=== PATIENT | female | born 1940 | race Caucasian/White ===

== ENCOUNTER 2017-08-21 13:00 | Inpatient (IN) ==
[2017-08-21 14:36] LABS: Basophils # 0.1 K/mcL (0.0-0.2); Basophils % 0.8 %; Eosinophils # 0.2 K/mcL (0.0-0.6); Eosinophils % 2.5 %; Hematocrit 36.6 % (35.3-44.9); Hemoglobin 11.5 g/dL (11.5-15.4); Immature Granulocytes % 0.7 % (0-4); Lymphocytes # 2.5 K/mcL (0.6-4.6); Lymphocytes % 34.2 %; Mean Corpuscular HGB Conc 31.4 g/dL (31.6-35.5); Mean Corpuscular Hemoglobin 27.8 pg (28.0-33.3); Mean Corpuscular Volume 88.6 fL (83.0-100.0); Mean Platelet Volume 12.1 fL (9.4-12.4); Monocytes # 0.7 K/mcL (0.0-1.3); Neutrophils # 3.8 K/mcL (1.6-8.9); Platelet Count 236 K/mcL (140-400); Red Blood Count 4.13 M/mcL (3.82-4.97); Red Cell Distribution Width 13.2 % (11.5-14.5); Segmented Neutrophils % 52.8 %
[2017-08-21 14:42] LABS: Calcium 8.9 mg/dL (8.6-10.8); Potassium 3.9 mEq/L (3.5-4.5)
[2017-08-21] MEDS ORDERED: Nitroglycerin 1 INCH/GM PACKET TP ONE (14:59)
[2017-08-21] MEDS ORDERED: Nitroglycerin 0.4 MG TAB.SUBL SL PRN (15:01)
[2017-08-21] MEDS ORDERED: 0.9 % Sodium Chloride 500 ML IVC ONE (15:12)
--- NOTE | 2017-08-21 15:30 | Emergency Department Note ---
Disposition Clinical Impression: Atrial fibrillation with RVR Acute exacerbation of CHF (congestive heart failure) Qualifiers: Congestive heart failure type: diastolic Qualified Code(s): I50.33 - Acute on chronic diastolic (congestive) heart failure Disposition: Admitted As Inpatient Condition: Undetermined SOB HPI - General Chief Complaint: ED Shortness of Breath/Dyspnea Stated Complaint: Can't Breathe Time Seen by Provider: 08/21/17 13:29 Source: patient Mode of arrival: ambulatory Limitations: no limitations Nursing Notes Reviewed: Yes Vital Signs Reviewed: Yes - History of Present Illness 76-year-old female with history of hypertension, hyperlipidemia, arrives [facility] emergency department with complaint of shortness of breath on exertion, right lower extremity swelling, and chest discomfort. The patient states his been ongoing for roughly 2-3 weeks but is acutely worsened over the past 3 days. The patient states that she has never experienced any previous symptoms associated with this. She is complaining of pressure at this time and states her dyspnea has improved since she has been sitting on the cot. The patient states that she does have a history of atrial fibrillation but states she does not take any medications for other than the Toradol to control rate. The patient denies any other complaints at this time. She is resting comfortably bedside without any accessory muscle use or difficulty breathing at this time. Pt Subjective Complaint: shortness of breath Improves with: nothing Worsens with: nothing Known history of: congestive heart failure Associated symptoms: Reports: chest pain, lower extremity pain, diaphoresis Treatment prior to arrival: none Cough present: No Sputum production: No - Related Data Home oxygen amount: none Home Medications Medication Instructions Recorded Confirmed Amlodipine Besylate 10 mg PO DAILY 08/21/17 08/21/17 Atorvastatin [Lipitor] 10 mg PO HS 08/21/17 08/21/17 Furosemide [Lasix] 40 mg PO DAILY 08/21/17 08/21/17 Lisinopril [Zestril] 40 mg PO BID 08/21/17 08/21/17 Metoprolol Succinate 100 mg PO BID 08/21/17 08/21/17 Omeprazole [PriLOSEC] 40 mg PO DAILY 08/21/17 08/21/17 Potassium Chloride [Klor-Con 10] 10 meq PO DAILY 08/21/17 08/21/17 Venlafaxine HCl [Venlafaxine HCl 150 mg PO DAILY 08/21/17 08/21/17 ER] cloNIDine HCl [Clonidine HCl] 0.3 mg PO TID 08/21/17 08/21/17 traZODone [TraZODone] 50 mg PO HS 08/21/17 08/21/17 Allergies Allergy/AdvReac Type Severity Reaction Status Date / Time No Known Allergies Allergy Unverified 12/21/16 11:32 All systems ED: reviewed and negative except as stated. Constitutional: Denies: fever, chills, weakness, weight change Cardiovascular: Reports: chest pain, palpitations, dyspnea on exertion, edema. Denies: syncope Respiratory: Reports: dyspnea. Denies: cough, wheezes, hemoptysis, stridor Gastrointestinal: Denies: abdominal pain, nausea, vomiting, diarrhea, constipation, hematemesis, melena, hematochezia Musculoskeletal: Denies: back pain, neck pain, arthralgia, myalgia Integumentary: Denies: rash, abrasion, lesions Neurological: Denies: headache, weakness, numbness, paresthesias, confusion, abnormal gait, vertigo Past Medical History - Past Medical History Attestation: Yes The following information was validated with the patient. Source: patient Medical history: Reports: GERD, hypertension Psychiatric history: Reports: depression - Social History Smoking Status: Never smoker Smokeless Tobacco Status: No Alcohol use: Reports: none Drug use: Reports: none Physical Exam - General Limitations: no limitations General appearance: alert, in no apparent distress - Head Head exam: atraumatic, normocephalic, normal inspection - Eye Eye exam: Present: normal appearance, PERRL, EOMI - Neck Neck exam: Present: normal inspection, full ROM, trachea midline - Chest Chest inspection: Present: normal inspection, symmetric chest wall rise - Respiratory Respiratory exam: Present: normal lung sounds bilaterally - Cardiovascular Cardiovascular exam: Present: regular rate, normal rhythm, normal heart sounds - Abdominal Exam Abdominal exam: Present: soft, Non-Tender. Absent: tenderness, distention, guarding, rebound, rigidity - Extremities Exam Extremities exam: Present: full ROM, pedal edema (RLE mildly worse than left). Absent: tenderness Course Vital Signs Temperature 97.6 F 08/21/17 13:17 Pulse Rate 116 08/21/17 13:17 Respiratory Rate 20 08/21/17 13:17 Blood Pressure 116/78 08/21/17 13:17 O2 Sat by Pulse Oximetry 96 08/21/17 13:17 Temperature 98.0 F 08/22/17 07:24 Pulse Rate 73 08/22/17 07:24 Respiratory Rate 14 08/22/17 07:24 Blood Pressure 118/83 08/22/17 07:24 O2 Sat by Pulse Oximetry 97 08/22/17 07:24 Oxygen Delivery Oxygen Delivery Nasal Cannula Shortness of Breath/Dyspnea - [facility] Narrative Medical decision making narrative: Patient's workup in the emergency department demonstrated atrial fibrillation with RVR. A diltiazem drip was started without bolus given the patient's blood pressure. The patient's ENP was elevated demonstrated CHF exacerbation. This is likely associated with the patient's atrial fibrillation. The patient had an elevated d-dimer but a negative CTA of the chest which demonstrated no pulmonary embolus. Given the patient's symptoms and complaint along with the findings here in the emergency department, we will admit the patient to the hospital for further care. The patient is resting comfortably in bed at this time. Patient agrees to plan. - Lab Data Lab results reviewed: Yes I reviewed the patient's lab results. Result diagrams: 08/22/17 05:50 08/22/17 05:50 Lab Results 08/21/17 08/21/17 08/21/17 Range/Units 14:12 14:12 14:12 WBC 7.3 (4.3-11.1) K/mcL RBC 4.13 (3.82-4.97) M/mcL Hgb 11.5 (11.5-15.4) g/dL Hct 36.6 (35.3-44.9) % MCV 88.6 (83.0-100.0) fL MCH 27.8 L (28.0-33.3) pg MCHC 31.4 L (31.6-35.5) g/dL RDW 13.2 (11.5-14.5) % Plt Count 236 (140-400) K/mcL MPV 12.1 (9.4-12.4) fL Immature Gran % 0.7 (0-4) % Seg Neutrophils % 52.8 % Lymphocytes % 34.2 % Monocytes % 9.0 % Eosinophils % 2.5 % Basophils % 0.8 % Neutrophils # 3.8 (1.6-8.9) K/mcL Lymphocytes # 2.5 (0.6-4.6) K/mcL Monocytes # 0.7 (0.0-1.3) K/mcL Eosinophils # 0.2 (0.0-0.6) K/mcL Basophils # 0.1 (0.0-0.2) K/mcL PT (9.4-12.1) Seconds INR APTT (26.0-36.0) Seconds D-Dimer (0-500) ng/mLFEU Sodium 138 (136-145) mEq/L Potassium 3.9 (3.5-4.5) mEq/L Chloride 103 (98-109) mEq/L Carbon Dioxide 27 (19-29) mEq/L BUN 19 (7-20) mg/dL Creatinine 1.23 H (0.57-1.11) mg/dL Est GFR ( Amer) 51 L (> 60) Est GFR (Non-Af Amer) 42 L (> 60) BUN/Creatinine Ratio 15 (6-26) Glucose 99 (70-99) mg/dL Calculated Osmolality 288 (280-300) Calcium 8.9 (8.6-10.8) mg/dL Troponin I 0.00 (0-0.03) ng/mL B-Natriuretic Peptide (0-100) pg/mL 08/21/17 08/21/17 08/21/17 Range/Units 14:12 15:01 15:15 WBC (4.3-11.1) K/mcL RBC (3.82-4.97) M/mcL Hgb (11.5-15.4) g/dL Hct (35.3-44.9) % MCV (83.0-100.0) fL MCH (28.0-33.3) pg MCHC (31.6-35.5) g/dL RDW (11.5-14.5) % Plt Count (140-400) K/mcL MPV (9.4-12.4) fL Immature Gran % (0-4) % Seg Neutrophils % % Lymphocytes % % Monocytes % % Eosinophils % % Basophils % % Neutrophils # (1.6-8.9) K/mcL Lymphocytes # (0.6-4.6) K/mcL Monocytes # (0.0-1.3) K/mcL Eosinophils # (0.0-0.6) K/mcL Basophils # (0.0-0.2) K/mcL PT 12.0 (9.4-12.1) Seconds INR 1.1 APTT 26.9 (26.0-36.0) Seconds D-Dimer 1156 H (0-500) ng/mLFEU Sodium (136-145) mEq/L Potassium (3.5-4.5) mEq/L Chloride (98-109) mEq/L Carbon Dioxide (19-29) mEq/L BUN (7-20) mg/dL Creatinine (0.57-1.11) mg/dL Est GFR ( Amer) (> 60) Est GFR (Non-Af Amer) (> 60) BUN/Creatinine Ratio (6-26) Glucose (70-99) mg/dL Calculated Osmolality (280-300) Calcium (8.6-10.8) mg/dL Troponin I (0-0.03) ng/mL B-Natriuretic Peptide 1385 H (0-100) pg/mL - Radiology Data Radiology results reviewed: Yes I reviewed the patient's radiology results. - EKG Data EKG attestation: Yes I reviewed and interpreted this EKG. EKG results narrative: Heart rate 126. QTc 380 ms. Left axis deviation. Intrafibrillation with RVR. Rest and elevation or ST depression. New atrial fibrillation changes noted from 11/01/2013. Attestation Statement - Attestation Attestation: I, Jacek Bingham, examined this patient and my medical decision-making was reviewed with the [employer]/PA/Advanced Practice Nurse/Resident Physician. I agree with the documented findings, disposition and treatment plan as described except to the extent set forth below. 76-year-old female presents with increasing shortness of breath. Patient states she is unable lay flat secondary to shortness of breath. Patient is in atrial fibrillation with a rapid ventricular rate on initial evaluation. Patient is unable to feel palpitations and it is unclear how long she has been in atrial fibrillation. Patient apparently has a history of Atrial fibrillation however she does not take anticoagulation medications or antiarrhythmic medications. Patient had a d-dimer that was elevated. CT of the chest was negative for PE. She had an elevated BNP and she was treated with Lasix. Patient started on heparin for treatment of her atrial fibrillation. Initial troponin negative. Patient comfortable with the plan for admission to the hospital.
[2017-08-21] MEDS ORDERED: *HR* Heparin 5,000 UNIT/ML VIAL IVP PRN ×2 (18:42)
[2017-08-21] MEDS ORDERED: *HR* Heparin 5,000 UNIT/ML VIAL IVP ONE (18:42)
[2017-08-21 18:58] LABS: INR 1.1
[2017-08-21 19:00] LABS: Activated Partial Thrombo Time 26.9 Seconds (26.0-36.0)
[2017-08-21] MEDS: Heparin 25,000 UNIT/500 ML D5W 25,000 UNIT/500 ML MLS IVC SCH (20:51)
--- NOTE | 2017-08-21 22:27 | Venous Imaging Report ---
LE Venous Duplex Patient Name:Marisela Nazario Order Number:[id number] Procedure Date:08/21/2017 Date:1940ge:76 yrs Gender:Female Location:[facility] OP Room #: Grinding Machine Operator:Rohit Moreira Referring MD:Johann لاعراقي, DO bed setter:Gracie Holly MD Reading MD:Janak Hernandez MD , FACS Primary Indications:RLE swelling Secondary Indications: Risk Factors Yes/No None Impressions: Right lower extremity: normal superficial and deep exam. Left lower extremity: normal contralateral exam. Recommendations: Preliminary result reported to Dr. Tobar in person. Findings Venous Duplex Results: Right: The right peroneal vein was not well visualized. Prior Study: No prior study available for comparison. Lower Extremity Venous Duplex Side Vein Compress Spontaneous Flow Augment Diameter (cm) Depth (cm) Right Distal Iliac Normal Yes Phasic Yes Right Common Femoral Normal Yes Phasic Yes Right Superficial Femoral Normal Yes Phasic Yes Right Popliteal Normal Yes Phasic Yes Right Posterior Tibial Normal Yes Phasic Yes Right Peroneal Normal Yes Phasic Yes Right Saphenofemoral Junction Normal Yes Phasic Yes Right Great Saphenous Normal Yes Phasic Yes Right Lesser Saphenous Normal Yes Phasic Yes Left Common Femoral Normal Yes Phasic Yes Updated by Janak Hernandez MD, FACS on 08/21/2017 10:23:09 PM Janak Hernandez MD electronically signed on 08/21/2017 10:23:24 PM with status of Final
--- NOTE | 2017-08-21 23:10 | Internal Med History&Physical ---
<Fred London - Last Filed: 08/22/17 02:03> Date of Encounter: 08/21/17 Time of Encounter: 23:09 Assessment and Plan (1) Atrial fibrillation with RVR Current visit: Yes Status: Acute Continue Cardizem drip CHADS2 VASC score 3: age, HTN, and CHF. Patient is not on home anticoagualtion at this time. Recommend starting Xarelto if echo negative. Continue Heparin. Continue to monitor (2) Acute exacerbation of CHF (congestive heart failure) Current visit: Yes Status: Acute Patient had negative nuclear stress echo on 12/28/16 with LVEF 60-65%. Continue Lasix 40mg IV BID Fluid restriction Echo pending Continue home meds Qualifiers: Congestive heart failure type: diastolic Qualified Code(s): I50.33 - Acute on chronic diastolic (congestive) heart failure (3) HTN (hypertension) Current visit: Yes Status: Acute Hold home Metoprolol while on Cardizem drip Continue to monitor Qualifiers: Hypertension type: unspecified Qualified Code(s): I10 - Essential (primary ) hypertension (4) HLD (hyperlipidemia) Current visit: Yes Status: Acute Continue home meds Qualifiers: Hyperlipidemia type: unspecified Qualified Code(s): E78.5 - Hyperlipidemia , unspecified (5) Morbid obesity with BMI of 50.0-59.9, adult Current visit: Yes Status: Acute Discussed diet modification and exercise (6) DVT prophylaxis Current visit: Yes Status: Acute Heparin Internal Medicine - H&P: HPI Chief complaint: SOB Admitted From: Home Plans for Post Hospital Care: Home History of present illness: Ms. Nazario is a 76 year old female with a PMH of A-fib, CHF, HTN, HLD, GERD, and morbid obesity presented c/o SOB, CP, and leg edema gradually getting for the past 3 days. Sxs have been present for the past 2 weeks and SOB is worse with exertion. Patient reports associated palpitations and diaphoresis. She describes constant left sided chest pressure like a brick sitting on her chest. Nothing makes CP better or worse. Pain severity wasa 8/10 and non-radiating. In the ED, EKG revealed A-fib with RVR and patient was started on Cardizem drip. BNP was 1385. The patient had an elevated d-dimer but bilateral leg U/S was negative for DVT and CTA of the chest demonstrated no pulmonary embolus. Of note, patient had negative nuclear stress echo on 12/28/16 with LVEF 60-65%. Past Med Surg Social Fam HX - Past Medical History Medical history: arthritis, GERD, hypertension Psychiatric history: depression - Past Surgical History Surgical History: cholecystectomy, hysterectomy, knee replacement - Social History Smoking Status: Never smoker Smokeless Tobacco Status: No Alcohol use: none Drug use: none - Family History Mother Hx Family Cardiac Disorders: Yes (HTN) Father Hx Family Cardiac Disorders: Yes (HTN) Internal Medicine - H&P: Meds Amlodipine Besylate 10 mg PO DAILY 08/21/17 [History] Atorvastatin [Lipitor] 10 mg PO HS 08/21/17 [History] Furosemide [Lasix] 40 mg PO DAILY 08/21/17 [History] Lisinopril [Zestril] 40 mg PO BID 08/21/17 [History] Metoprolol Succinate 100 mg PO BID 08/21/17 [History] Omeprazole [PriLOSEC] 40 mg PO DAILY 08/21/17 [History] Potassium Chloride [Klor-Con 10] 10 meq PO DAILY 08/21/17 [History] Venlafaxine HCl [Venlafaxine HCl ER] 150 mg PO DAILY 08/21/17 [History] cloNIDine HCl [Clonidine HCl] 0.3 mg PO TID 08/21/17 [History] traZODone [TraZODone] 50 mg PO HS 08/21/17 [History] 3 Allergy/AdvReac Type Severity Reaction Status Date / Time No Known Allergies Allergy Unverified 12/21/16 11:32 All Systems PM: A 10-system review of systems was performed and is negative for pertinent findings except as documented above in the HPI. - Constitutional Constitutional: fatigue, malaise, no chills, no fever(s), no weight gain, no weight loss - EENT Eyes: no blurry vision Nose, mouth and throat: no nasal congestion, no sinus pressure - Cardiovascular Cardiovascular ROS IM: chest pain, dyspnea on exertion, palpitations - Respiratory Respiratory: dyspnea, dyspnea on exertion, no chest congestion - Gastrointestinal Gastrointestinal: no abdominal pain, no diarrhea, no nausea, no vomiting - Genitourinary Genitourinary: no dysuria, no urinary frequency, no urinary urgency - Musculoskeletal Musculoskeletal ROS IM: no back pain, no numbness, no tingling - Integumentary Integumentary IM: no erythema, no rash - Neurological Neurological ROS: no confusion, no numbness, no tingling, no weakness - Psychiatric Psychiatric: no anxiety, no depression - Endocrine Endocrine IM: fatigue, no polydipsia, no polyphagia, no polyuria - Constitutional Vitals: Temp Pulse Resp BP Pulse Ox 98.1 F 101 22 121/82 94 08/21/17 22:36 08/21/17 22:36 08/21/17 22:36 08/21/17 22:36 08/21/17 22:36 General appearance: Present: cooperative, morbidly obese, pleasant, no acute distress, answers questions appropriately - Head Head exam: Present: atraumatic, normal inspection, normocephalic - Eye Eye exam: Present: EOMI, PERRL - ENT ENT exam: Present: mucous membranes moist, normal oropharynx - Neck Neck exam general surgery: Present: normal inspection, supple. Absent: lymphadenopathy, tenderness - Respiratory Respiratory exam: Present: decreased breath sounds (bibasilar), rales. Absent: wheezes - Cardiovascular Cardiovascular exam: Present: irregular rhythm, +S1, +S2, systolic murmur - GI/Abdominal GI/Abdominal exam: Present: distended, normal bowel sounds, soft. Absent: guarding - Extremities Exam Extremities exam: Present: normal capillary refill, pedal edema (2+), warm, radial pulses palpable and symmetrical. Absent: joint swelling - Back Exam Back exam: Present: normal inspection. Absent: tenderness - Neurological Exam Neurological exam: Present: alert, CN II-XII intact, oriented X3, no focal deficits. Absent: altered - Psychiatric Psychiatric exam: Present: normal affect, normal mood - Skin Skin exam: Present: dry, intact, warm. Absent: erythema Internal Med - H&P Results - Labs CBC & Chem 7: 08/21/17 14:12 08/21/17 14:12 - EKG Data -: EKG Interpreted by Myself Rate: tachycardia (rate 126. QTc 380 ms. Left axis deviation. Intrafibrillation with No ST elevation or ST depression. ) - EKG Data Prior EKG available for review: yes When compared to previous EKG: there are significant changes (A-fib) - Impressions ITS Impressions Chest X-Ray 08/21/17 13:29 IMPRESSION: Mild interstitial edema with some left basilar atelectasis. D/ / 08/21/2017 15:12:30 Cooper Cota MD / samanta Interpreting Provider: Cooper Cota MD Chest CTA 08/21/17 16:14 IMPRESSION: Cardiomegaly with pulmonary edema. No CT evidence of pulmonary embolism. D/ / Kanwal Donato Cha, MD / Kanwal Donato Cha, MD Interpreting Provider: Kanwal Donato Cha, MD <Guzman Cherry T - Last Filed: 08/22/17 02:54> Date of Encounter: 08/21/17 (Seen 08/21/17) Internal Medicine - H&P: HPI History of present illness: Ms. Nazario is a 76 year old female All Systems PM: A 10-system review of systems was performed and is negative for pertinent findings except as documented above in the HPI. - Constitutional Vitals: Temp Pulse Resp BP Pulse Ox 98.1 F 101 22 121/82 94 08/21/17 22:36 08/21/17 22:36 08/21/17 22:36 08/21/17 22:36 08/21/17 22:36 Internal Med - H&P Results - Labs CBC & Chem 7: 08/21/17 14:12 08/21/17 14:12 - Attending Attestation I have independently seen and examined this patient on 08/21/2017. I have discussed the plan of care with the resident physician and the patient. 76-year-old female with known history of atrial fibrillation, hypertension, hyperlipidemia, CHF with preserved ejection fraction, depression and GERD. She presents with 2 weeks onset of shortness of breath on exertion and chest discomfort. She reports this has worsened in the past 3-4 days hence her presentation at this time. Physical examination is remarkable for tachycardia with a heart rate ranging from 101-124. Her blood pressure respiratory rate and temperature have been normal. She is alert and oriented 3 she has no speech deficits she has no facial asymmetry. She moves all her limbs equally. Her chest auscultation reveals bibasilar crackles. Heart sounds are S1 and S2 and irregular. Abdomen is obese and nontender she has no pedal edema. Labs and imaging reviewed CBC and chemistry unremarkable. Elevated d-dimer greater than 1000. CTA shows cardiomegaly with pulmonary edema and rules out pulmonary embolism. Assessment A. fib with RVR: Continue current management with cardizem heparin drip. CHADS score 3 for age, HTN, CHF. Transition to ORTIZ for anticoagulation, and restart home oral medications as tolerated CHF exacerbation: Lasix IVP 40mg BID, Daily weighs, Strict I/O, Obtain ECHO. Fluid restriction Other chronic conditions are stable, continue home meds Rest of details as in resident physician's documentation
[2017-08-21] MEDS ORDERED: Aspirin 325 MG TABLET PO ONE (23:31)
[2017-08-21] MEDS ORDERED: *HR* Morphine 2 MG/ML SYRINGE IVP PRN (23:31)
[2017-08-21] MEDS ORDERED: Naloxone 0.4 MG/ML INJ IVP PRN (23:34)
[2017-08-22] MEDS: Acetaminophen 325 MG TABLET PO PRN (00:06)
[2017-08-22] MEDS: traZODone 50 MG TABLET PO SCH ×2 (00:06→20:00)
[2017-08-22] MEDS ORDERED: Famotidine 20 MG/2 ML VIAL IVP SCH (06:00)
[2017-08-22 06:02] LABS: Basophils % 0.5 %; Eosinophils # 0.2 K/mcL (0.0-0.6); Eosinophils % 2.7 %; Hematocrit 33.5 % (35.3-44.9); Hemoglobin 10.6 g/dL (11.5-15.4); Immature Granulocytes % 0.7 % (0-4); Lymphocytes # 2.4 K/mcL (0.6-4.6); Lymphocytes % 32.1 %; Mean Corpuscular HGB Conc 31.6 g/dL (31.6-35.5); Mean Corpuscular Volume 88.6 fL (83.0-100.0); Monocytes # 0.6 K/mcL (0.0-1.3); Neutrophils # 4.1 K/mcL (1.6-8.9); Platelet Count 177 K/mcL (140-400); Red Blood Count 3.78 M/mcL (3.82-4.97); Red Cell Distribution Width 13.2 % (11.5-14.5)
[2017-08-22 06:15] LABS: Albumin 3.2 g/dL (3.5-5.0); Albumin/Globulin Ratio 1.1 (1.1-2.2); Bilirubin,Total 0.6 mg/dL (0.2-1.2); Calcium 8.6 mg/dL (8.6-10.8); Globulin 2.8 g/dL (2.4-3.5); Potassium 3.9 mEq/L (3.5-4.5)
[2017-08-22 06:30] LABS: Heparin anti-factor XA UFH 1.07 IU/mL (0.30-0.70)
[2017-08-22] MEDS: Aspirin Enteric Coated 81 MG Tablet PO SCH (08:18)
[2017-08-22] MEDS: Venlafaxine XR (24 HR) 150 MG CAP.ER.24H PO SCH (08:18)
[2017-08-22] MEDS: Furosemide 40 MG/4 ML VIAL IVP SCH ×2 (08:18→16:12)
--- NOTE | 2017-08-22 08:29 | Internal Med Progress Note ---
<Orlando Gill - Last Filed: 08/22/17 11:04> Date of Encounter: 08/22/17 Time of Encounter: 08:29 - Assessment and plan (1) Atrial fibrillation with RVR Current Visit: Yes Status: Acute Assessment and plan: Newly diagnosed Rate controlled on cardizem drip Currently on Heparin, therapeutic dose. Anti-Xa 1.07 Echo pending, likely to start xarelto following echo (2) Acute exacerbation of CHF (congestive heart failure) Current Visit: Yes Status: Acute Assessment and plan: CHF with preserved Ejection Fraction (60-65% 12/28/16) IV Lasix 40mg BID, Strict I's/O's. Patient mentions that she was unable to use restroom yesterday, but has had frequent urination since intiating IV lasix here Continue home meds Qualifiers: Congestive heart failure type: diastolic Qualified Code(s): I50.33 - Acute on chronic diastolic (congestive) heart failure (3) Morbid obesity with BMI of 50.0-59.9, adult Current Visit: Yes Status: Acute (4) HTN (hypertension) Current Visit: Yes Status: Chronic Assessment and plan: Metoprolol has been held Cardizem drip Continue to monitor Qualifiers: Hypertension type: unspecified Qualified Code(s): I10 - Essential (primary ) hypertension (5) HLD (hyperlipidemia) Current Visit: Yes Status: Chronic Assessment and plan: Continue home meds Qualifiers: Hyperlipidemia type: unspecified Qualified Code(s): E78.5 - Hyperlipidemia , unspecified (6) DVT prophylaxis Current Visit: Yes Status: Acute Assessment and plan: On therapeutic heparin dose - Subjective Interval history: Patient is resting comfortable in bed at the time of exam. She says that she's feeling much better than she was, and is having a much easier time breathing. She does admit anxiety about a diagnosis of Afib/CHF, because her had CHF. She said that she coughed some overnight, but that she's less dyspneic. - Constitutional Vitals: Temp Pulse Resp BP Pulse Ox 98.0 F 73 14 118/83 97 08/22/17 07:24 08/22/17 07:24 08/22/17 07:24 08/22/17 07:24 08/22/17 07:24 General appearance: Present: cooperative, morbidly obese, pleasant, no acute distress, answers questions appropriately - Head Head exam: Present: atraumatic, normocephalic - Eye Eye exam: Present: PERRL, conjuntiva pink, sclera anicteric Pupils: Present: PERRL - Neck Neck exam general surgery: Present: supple, trachea midline. Absent: lymphadenopathy - Respiratory Respiratory exam: Present: decreased breath sounds, rales. Absent: accessory muscle use, rhonchi, wheezes Additional comments: bibasilar L > R - Cardiovascular Cardiovascular exam: Present: RRR, +S1, +S2. Absent: diastolic murmur, gallop, rubs, systolic murmur - GI/Abdominal GI/Abdominal exam: Present: normal bowel sounds, soft, no peritoneal signs. Absent: distended, tenderness - Extremities Exam Extremities exam: Present: pedal edema (1+, b/l), warm, radial pulses palpable and symmetrical. Absent: calf tenderness, cyanotic - Neurological Exam Neurological exam: Present: CN II-XII intact, oriented X3, no focal deficits. Absent: pronater drift, facial droop, speech deficit - Skin Skin exam: Present: dry, intact Internal Medicine: Result - Labs CBC & Chem 7: 08/22/17 05:50 08/22/17 05:50 Labs: Short CBC 08/22/17 Range/Units 05:50 WBC 7.3 (4.3-11.1) K/mcL Hgb 10.6 L (11.5-15.4) g/dL Hct 33.5 L (35.3-44.9) % Plt Count 177 (140-400) K/mcL Neutrophils # 4.1 (1.6-8.9) K/mcL BMP 08/22/17 05:50 Sodium 141 Potassium 3.9 Chloride 106 Carbon Dioxide 25 BUN 17 Creatinine 1.21 H Glucose 127 H Calcium 8.6 Cardiac Enzymes 08/22/17 08/22/17 Range/Units 00:45 05:50 Troponin I 0.00 0.02 (0-0.03) ng/mL Liver Function 08/22/17 Range/Units 05:50 Total Bilirubin 0.6 (0.2-1.2) mg/dL AST 14 (5-34) Units/L ALT 11 (0-55) Units/L Alkaline Phosphatase 103 (38-126) Units/L Albumin 3.2 L (3.5-5.0) g/dL - ABG Interpretation ABG results: PT/INR, D-dimer PT 12.0 Seconds (9.4-12.1) 08/21/17 15:01 D-Dimer 1156 ng/mLFEU (0-500) H 08/21/17 15:15 Consult Discharge Plan - Plan Additional Instructions: pcp requested Referrals: Gracie Holly MD [Primary Care Provider] - 09/04/17 11:15 am <Clifford Ellison - Last Filed: 08/22/17 17:29> Date of Encounter: 08/22/17 - Assessment and plan (1) Atrial fibrillation Current Visit: Yes Status: Acute Assessment and plan: Currently on Card drip. Still uncontrolled rate. PO Metroprolol restarted. On IV heparin as well. Qualifiers: Atrial fibrillation type: persistent Qualified Code(s): I48.1 - Persistent atrial fibrillation (2) Acute exacerbation of CHF (congestive heart failure) Current Visit: Yes Status: Acute Qualifiers: Congestive heart failure type: diastolic Qualified Code(s): I50.33 - Acute on chronic diastolic (congestive) heart failure (3) HTN (hypertension) Current Visit: Yes Status: Chronic Qualifiers: Hypertension type: essential hypertension Qualified Code(s): I10 - Essential (primary) hypertension (4) Morbid obesity with BMI of 50.0-59.9, adult Current Visit: Yes Status: Acute (5) HLD (hyperlipidemia) Current Visit: Yes Status: Chronic Qualifiers: Hyperlipidemia type: mixed hyperlipidemia Qualified Code(s): E78.2 - Mixed hyperlipidemia (6) CKD (chronic kidney disease) stage 3, GFR 30-59 ml/min Current Visit: Yes Status: Chronic Assessment and plan: Labs reviewed and GFR 40-60. Avoid nephrotoxins. - Constitutional Vitals: Temp Pulse Resp BP Pulse Ox 98.2 F 98 14 130/99 92 08/22/17 15:29 08/22/17 15:29 08/22/17 15:29 08/22/17 15:29 08/22/17 15:29 Internal Medicine: Result - Labs CBC & Chem 7: 08/22/17 05:50 08/22/17 05:50 Labs: Short CBC 08/22/17 Range/Units 05:50 WBC 7.3 (4.3-11.1) K/mcL Hgb 10.6 L (11.5-15.4) g/dL Hct 33.5 L (35.3-44.9) % Plt Count 177 (140-400) K/mcL Neutrophils # 4.1 (1.6-8.9) K/mcL BMP 08/22/17 05:50 Sodium 141 Potassium 3.9 Chloride 106 Carbon Dioxide 25 BUN 17 Creatinine 1.21 H Glucose 127 H Calcium 8.6 Cardiac Enzymes 08/22/17 08/22/17 08/22/17 Range/Units 00:45 05:50 11:43 Troponin I 0.00 0.02 0.00 (0-0.03) ng/mL Liver Function 08/22/17 Range/Units 05:50 Total Bilirubin 0.6 (0.2-1.2) mg/dL AST 14 (5-34) Units/L ALT 11 (0-55) Units/L Alkaline Phosphatase 103 (38-126) Units/L Albumin 3.2 L (3.5-5.0) g/dL - ABG Interpretation ABG results: PT/INR, D-dimer PT 12.0 Seconds (9.4-12.1) 08/21/17 15:01 D-Dimer 1156 ng/mLFEU (0-500) H 08/21/17 15:15 - Attending Attestation I examined this patient and my medical decision-making was reviewed with the Resident Physician on 08/22/17. I agree with the documented findings, disposition and treatment plan as described except to the extent set forth below. Ms Nazario is currently admitted for new onset atrial fib which remains tachycardic despite Cardizem drip. She is also on heparin drip. She remains high risk due to potential for worsening cardiac status. Ms. Nazario is feeling OK. Still feels palpitations especially when up in room. No CP. No SOB. On heparin and will need to transition to PO med. No fever or chills. No GI issues. Exam Alert. Comfortable Heart irreg and tachy No wheeze noted. Abd soft No edema I/P 1. New a fib with RVR - on Cardizem and heparin. Awaiting echo. Recheck TSH in AM. 2. Morbid obesity 3. HTN - takes multiple meds to control BP. Continue to follow. Further diagnoses and plan as above.
[2017-08-22] MEDS ORDERED: Furosemide 40 MG TABLET PO SCH (09:00)
[2017-08-22] MEDS ORDERED: Lisinopril 20 MG TABLET PO SCH (09:00)
[2017-08-22] MEDS ORDERED: Metoprolol XL (24 HR) Succ 50 MG TAB.ER.24H PO SCH (09:00)
[2017-08-22] MEDS: Heparin 25,000 UNIT/500 ML D5W 25,000 UNIT/500 ML MLS IVC SCH (13:37)
[2017-08-22] MEDS: cloNIDine HCl 0.1 MG TABLET PO SCH ×2 (16:12→20:00)
[2017-08-22] MEDS ORDERED: *HR* Metoprolol 5 MG/5 ML VIAL IVP ONE (16:52)
[2017-08-22] MEDS ORDERED: Metoprolol XL (24 HR) Succ 50 MG TAB.ER.24H PO ONE (18:30)
--- NOTE | 2017-08-22 19:11 | Electrocardiograph Report ---
[place] [id number] Test Date: 2017-08-21 Pat Name: Marisela Nazario Department: 103 Room: [id number] Gender: F Service Desk Technician: : [id number] Requested By: Jacek Bingham Order Number: [id number] Reading MD: Ashly Colunga Measurements Intervals [place] Rate: 126 P: NE: 0 QRS: -29 QRSD: 114 T: 82 QT: 305 QTc: 380 Interpretive Statements ATRIAL FIBRILLATION WITH RAPID VENTRICULAR RESPONSE BORDERLINE LEFT AXIS DEVIATION [QRS AXIS < -20] INCOMPLETE RIGHT BUNDLE BRANCH BLOCK [90+ ms QRS DURATION, TERMINAL R IN V1/V2, 40+ ms S IN I/aVL/V4/V5/V6] MODERATE VOLTAGE CRITERIA FOR LVH, CONSIDER NORMAL VARIANT [MEETS CRITERIA IN ONE OF: R(aVL), S(V1), R(V5), R(V5/V6)+S(V1)] NONSPECIFIC ST & T-WAVE ABNORMALITY ABNORMAL RHYTHM ECG Electronically Signed On 08-22-2017 19:10:13 EDT by Ashly Colunga
[2017-08-22] MEDS ORDERED: *HR* Digoxin 0.5 MG/2 ML AMPUL IVP ONE (19:35)
[2017-08-22] MEDS: Metoprolol XL (24 HR) Succ 50 MG TAB.ER.24H PO SCH (20:01)
[2017-08-23] MEDS ORDERED: *HR* Digoxin 0.5 MG/2 ML AMPUL IVP ONE (02:00)
[2017-08-23] MEDS: Acetaminophen 325 MG TABLET PO PRN (03:16)
[2017-08-23 04:02] LABS: Basophils # 0.1 K/mcL (0.0-0.2); Basophils % 0.5 %; Eosinophils # 0.2 K/mcL (0.0-0.6); Eosinophils % 1.8 %; Hematocrit 36.7 % (35.3-44.9); Hemoglobin 11.6 g/dL (11.5-15.4); Immature Granulocytes % 0.8 % (0-4); Lymphocytes # 1.7 K/mcL (0.6-4.6); Lymphocytes % 18.4 %; Mean Corpuscular HGB Conc 31.6 g/dL (31.6-35.5); Mean Corpuscular Hemoglobin 28.2 pg (28.0-33.3); Mean Corpuscular Volume 89.1 fL (83.0-100.0); Mean Platelet Volume 12.4 fL (9.4-12.4); Monocytes # 0.7 K/mcL (0.0-1.3); Monocytes % 7.6 %; Neutrophils # 6.6 K/mcL (1.6-8.9); Platelet Count 208 K/mcL (140-400); Red Blood Count 4.12 M/mcL (3.82-4.97); Red Cell Distribution Width 13.2 % (11.5-14.5); Segmented Neutrophils % 70.9 %
[2017-08-23 04:22] LABS: Calcium 9.3 mg/dL (8.6-10.8); Potassium 3.4 mEq/L (3.5-4.5)
[2017-08-23] MEDS: Heparin 25,000 UNIT/500 ML D5W 25,000 UNIT/500 ML MLS IVC SCH (08:27)
[2017-08-23] MEDS: Aspirin Enteric Coated 81 MG Tablet PO SCH (08:29)
[2017-08-23] MEDS: Venlafaxine XR (24 HR) 150 MG CAP.ER.24H PO SCH (08:30)
[2017-08-23] MEDS: Metoprolol XL (24 HR) Succ 50 MG TAB.ER.24H PO SCH ×2 (08:30→21:19)
[2017-08-23] MEDS: Lisinopril 20 MG TABLET PO SCH (08:30)
[2017-08-23] MEDS: Furosemide 40 MG/4 ML VIAL IVP SCH ×2 (08:30→17:22)
[2017-08-23] MEDS: cloNIDine HCl 0.1 MG TABLET PO SCH ×2 (08:30→21:21)
[2017-08-23] MEDS: Ondansetron 4 MG/2 ML VIAL IVP PRN (10:14)
--- NOTE | 2017-08-23 10:57 | Internal Med Progress Note ---
Addendum entered and electronically signed by Orlando Gill DO 08/23/17 14: 45: Addendum to assessment and plan for hypertension: Renal artery Doppler ultrasound pending Original Note: <Orlando Gill - Last Filed: 08/23/17 14:26> Date of Encounter: 08/23/17 Time of Encounter: 10:56 - Assessment and plan (1) Atrial fibrillation with RVR Current Visit: Yes Status: Acute Assessment and plan: 08/23/17 Rate has been poorly controlled on Cardizem drip despite increasing to 20 mg/hr. Received IV digoxin 0.25 IV and 0.125 IV in the evening yesterday Cardiology is consulted, echo is pending Will follow cardiology recommendations for titrating off clonidine to increased Toprol dose. Cardiology recommends anticoagulation with Xarelto 08/22/17 Newly diagnosed Rate controlled on cardizem drip Currently on Heparin, therapeutic dose. Anti-Xa 1.07 Echo pending, likely to start xarelto following echo (2) Acute exacerbation of CHF (congestive heart failure) Current Visit: Yes Status: Acute Assessment and plan: 08/23/17 CHF with preserved Ejection Fraction (60-65% 12/28/16) Cardiology is on board, will follow recommendations. Continue IV Lasix 40 mg twice a day, strict I's and O's Daily weight. Goal increased Toprol following titration off clonidine. Patient treated with beta don, JILLIAN inhibitor, ASA and statin. 06/21/17 CHF with preserved Ejection Fraction (60-65% 12/28/16) IV Lasix 40mg BID, Strict I's/O's. Patient mentions that she was unable to use restroom yesterday, but has had frequent urination since intiating IV lasix here Continue home meds Qualifiers: Congestive heart failure type: diastolic Qualified Code(s): I50.33 - Acute on chronic diastolic (congestive) heart failure (3) Morbid obesity with BMI of 50.0-59.9, adult Current Visit: Yes Status: Acute (4) HTN (hypertension) Current Visit: Yes Status: Chronic Assessment and plan: 08/23/17 Reinitiate metoprolol XL at 100mg twice a day Decrease clonidine dose to twice a day Cardizem drip increased to 20 mg per hour Continue to monitor 08/22/17 Metoprolol has been held Cardizem drip Continue to monitor Qualifiers: Hypertension type: essential hypertension Qualified Code(s): I10 - Essential (primary) hypertension (5) HLD (hyperlipidemia) Current Visit: Yes Status: Chronic Assessment and plan: Continue home meds Qualifiers: Hyperlipidemia type: mixed hyperlipidemia Qualified Code(s): E78.2 - Mixed hyperlipidemia (6) Hypokalemia Current Visit: Yes Status: Acute Assessment and plan: Potassium 3.4 today Increase oral potassium chloride 20 mEq We will recheck tomorrow (7) DVT prophylaxis Current Visit: Yes Status: Acute Assessment and plan: On therapeutic heparin dose - Subjective Interval history: Patient is resting comfortable in bed at the time of exam, and is accompanied by her son. Patient is feeling less dyspneic than previous days. She feels that she is mostly improved. She has no acute complaints. - Constitutional Vitals: Temp Pulse Resp BP Pulse Ox 97.9 F 87 14 116/82 93 08/23/17 10:52 08/23/17 10:52 08/23/17 10:52 08/23/17 10:52 08/23/17 10:52 General appearance: Present: cooperative, morbidly obese, pleasant, no acute distress, answers questions appropriately Exam: - Head Head exam: Present: atraumatic, normocephalic - Eye Eye exam: Present: PERRL, conjuntiva pink, sclera anicteric Pupils: Present: PERRL - Neck Neck exam general surgery: Present: supple, trachea midline. Absent: lymphadenopathy - Respiratory Respiratory exam: Present: decreased breath sounds, rales. Absent: accessory muscle use, rhonchi, wheezes Additional comments: bibasilar L > R - Cardiovascular Cardiovascular exam: Present: Irregularly irregular, +S1, +S2. Absent: diastolic murmur, gallop, rubs, systolic murmur - GI/Abdominal GI/Abdominal exam: Present: normal bowel sounds, soft, no peritoneal signs. Absent: distended, tenderness - Extremities Exam Extremities exam: Present: pedal edema (1+, b/l), warm, radial pulses palpable and symmetrical. Absent: calf tenderness, cyanotic - Neurological Exam Neurological exam: Present: CN II-XII intact, oriented X3, no focal deficits. Absent: pronater drift, facial droop, speech deficit - Skin Skin exam: Present: dry, intact Internal Medicine: Result - Labs CBC & Chem 7: 08/23/17 03:05 08/23/17 03:05 Labs: Short CBC 08/23/17 Range/Units 03:05 WBC 9.3 (4.3-11.1) K/mcL Hgb 11.6 (11.5-15.4) g/dL Hct 36.7 (35.3-44.9) % Plt Count 208 (140-400) K/mcL Neutrophils # 6.6 (1.6-8.9) K/mcL BMP 08/23/17 03:05 Sodium 143 Potassium 3.4 L Chloride 104 Carbon Dioxide 28 BUN 14 Creatinine 1.21 H Glucose 130 H Calcium 9.3 Cardiac Enzymes 08/22/17 Range/Units 11:43 Troponin I 0.00 (0-0.03) ng/mL - ABG Interpretation ABG results: PT/INR, D-dimer PT 12.0 Seconds (9.4-12.1) 08/21/17 15:01 D-Dimer 1156 ng/mLFEU (0-500) H 08/21/17 15:15 Consult Discharge Plan - Plan Additional Instructions: pcp requested Referrals: Gracie Holly MD [Primary Care Provider] - 09/04/17 11:15 am <Clifford Ellison - Last Filed: 08/23/17 17:26> Date of Encounter: 08/23/17 - Assessment and plan (1) Atrial fibrillation Current Visit: Yes Status: Acute Qualifiers: Atrial fibrillation type: persistent Qualified Code(s): I48.1 - Persistent atrial fibrillation (2) Acute exacerbation of CHF (congestive heart failure) Current Visit: Yes Status: Acute Qualifiers: Congestive heart failure type: diastolic Qualified Code(s): I50.33 - Acute on chronic diastolic (congestive) heart failure (3) HTN (hypertension) Current Visit: Yes Status: Chronic Qualifiers: Hypertension type: essential hypertension Qualified Code(s): I10 - Essential (primary) hypertension (4) Morbid obesity with BMI of 50.0-59.9, adult Current Visit: Yes Status: Acute (5) HLD (hyperlipidemia) Current Visit: Yes Status: Chronic Qualifiers: Hyperlipidemia type: mixed hyperlipidemia Qualified Code(s): E78.2 - Mixed hyperlipidemia (6) CKD (chronic kidney disease) stage 3, GFR 30-59 ml/min Current Visit: Yes Status: Chronic - Constitutional Vitals: Temp Pulse Resp BP Pulse Ox 98.0 F 72 12 116/82 92 08/23/17 15:53 08/23/17 15:53 08/23/17 15:53 08/23/17 15:53 08/23/17 15:53 Internal Medicine: Result - Labs CBC & Chem 7: 08/23/17 03:05 08/23/17 03:05 Labs: Short CBC 08/23/17 Range/Units 03:05 WBC 9.3 (4.3-11.1) K/mcL Hgb 11.6 (11.5-15.4) g/dL Hct 36.7 (35.3-44.9) % Plt Count 208 (140-400) K/mcL Neutrophils # 6.6 (1.6-8.9) K/mcL BMP 08/23/17 03:05 Sodium 143 Potassium 3.4 L Chloride 104 Carbon Dioxide 28 BUN 14 Creatinine 1.21 H Glucose 130 H Calcium 9.3 - ABG Interpretation ABG results: PT/INR, D-dimer PT 12.0 Seconds (9.4-12.1) 08/21/17 15:01 D-Dimer 1156 ng/mLFEU (0-500) H 08/21/17 15:15 - Impressions Impressions Echocardiogram 08/22/17 01:05 Impressions: Somewhat technically challenging image quality due to body habitus and presence of atrial fibrillation with elevated heart rate, 110s. Overall, LV systolic appears normal, estimated EF 55%. Moderate increase in LV wall thickness. RV is mildly dilated with normal function. Moderate aortic regurgitation. Mild mitral regurgitation. Moderate tricuspid regurgitation. Mild-moderate pulmonic regurgitation. Mild pulmonary hypertension. Left Ventricular Wall Motion: Rest Echo Findings The mid inferior lateral and basal inferior lateral mccoy were not visualized. All other wall segments showed normal motion. Findings: Study Quality * Technically challenging due to body habitus. ECG Findings * Atrial fibrillation. HR 110's. Left Ventricle * Indeterminate diastolic function. * Moderate concentric left ventricular hypertrophy. * Normal LV size. * Overall, LV systolic function appears normal, estimated EF 50%. Aorta * Normally sized aortic root. Aortic Valve * Aortic valve not well visualized. * No aortic stenosis. * Moderate aortic regurgitation. Mitral Valve * Normal mitral valve structure. * No mitral stenosis. * Mild-moderate mitral annular calcification * Mild mitral regurgitation. Tricuspid Valve * Tricuspid valve not well visualized. * Moderate tricuspid regurgitation. * Estimated RA pressure is 8 mmHg. * Estimated RVSP is 44 mmHg. * Mild pulmonary hypertension. Pulmonic Valve * Pulmonic valve is not well visualized. * No pulmonic stenosis. * Mild-moderate pulmonic regurgitation. Pulmonary Artery * Pulmonary artery not well visualized. Right Ventricle * Mildly dilated RV with normal function. Left Atrium * Severely dilated left atrium. Right Atrium * Severely dilated right atrium. Pericardium * There is no pericardial effusion present. Interatrial Septum * No evidence of PFO by color Doppler. IVC * The IVC is dilated. * < 50% respiratory change. - Attending Attestation I examined this patient and my medical decision-making was reviewed with the Resident Physician on 08/23/17. I agree with the documented findings, disposition and treatment plan as described except to the extent set forth below. Ms Nazario is currently admitted for new rapid atrial fibrillation. She remains moderate to high risk due to potential for worsening cardiac and respiratory symptoms. Ms Nazario is feeling OK today. No CP or SOB. Heart rate somewhat better controlled today. Still on Cardizem drip and heparin. Card eval today. Exam Alert. Comfortable Mucus membranes dry Heart irreg - not tachy now Lungs clear Abd soft No edema I/P 1. Rapid a fib 2. HTN - renal artery eval Further diagnoses and plan as above.
--- NOTE | 2017-08-23 12:50 | Cardiology Consult Note ---
<Tyrone Barnard - Last Filed: 08/23/17 12:47> Date of Encounter: 08/23/17 Time of Encounter: 12:47 Assessment and Plan (1) Atrial fibrillation with RVR Current Visit: Yes Status: Acute Atrial fibrillation with RVR. Unknown timing of onset. C/o palpitations over the past year. More frequent in the last week. Avg HR 110 BPM over last 4 hours. Continue cardizem gtt 20 mg/HR and toprol XL 100 mg daily. Recieved IV digoxin 0.25 IV and 0.125 IV x1. Recommend titrating off clonidine to allow more b/p room to increase toprol as needed. Clonidine decreased to BID dosing. TTE pending. Check TSH. Will consider ROHIT/ DCCV if unable to rate control. CHADS VASC=4. (HTN, CHF, age, gender.) AC with coumadin vs NOAC discussed. Indication, use, SE discussed. She agrees. Agree with xarelto. Will need florez check. I will send to pharmacy. (2) Acute exacerbation of CHF (congestive heart failure) Current Visit: Yes Status: Acute Presented with SOB. Pulmonary edema on CT scan. BNP 1300. Agree with IV lasix. Net negative 395 ml. Stress echocardiogram 12/2016 showed EF 60%. Full TTE pending. Likely diastolic dysfunction in the setting of afib with RVR. Low sodium diet. Daily weights and strict I&O. Qualifiers: Congestive heart failure type: diastolic Qualified Code(s): I50.33 - Acute on chronic diastolic (congestive) heart failure Discussion w patient/family: The assessment and plan as outlined above was discussed with the patient and/or family members who expressed understanding and agreement. All questions were answered. Thank you for involving us in the care of your patient. Please call with any questions. History of Present Illness Consult date: 08/23/17 Requesting physician: Clifford Ellison Consult reason: new atrial fibrillation with RVR Chief complaint: palpitations, SOB History of present illness: Ms. Nazario is a 76 year old female with a history of HTN and morbid obesity who presented with increasing SOB and frequent palpitations for one week. Her symptoms increased with activity and improved with rest. She was found to have atrial fibrillation with RVR. CTA of the chest showed no PE, there was pulmonary edema noted. She is also being treated for acute CHF. Denies previous cardiac history. She did undergo stress echocardiogram in December of this year that was negative for ischemia. EF was 60-65%. Cardiology consulted for management of afib. HR difficult to control after 20 mg/hr IV cardizem and IV digoxin. HE 80-90 bpm during my evaluation. She denies chest pain. Reports SOB and palpitations improved. Past Med Surg Social Fam HX - Past Medical History Medical history: GERD, hypertension Psychiatric history: depression - Past Surgical History Surgical History: cholecystectomy, hysterectomy, knee replacement - Social History Smoking Status: Never smoker Smokeless Tobacco Status: No Alcohol use: none Drug use: none - Family History Mother Hx Family Cardiac Disorders: Yes (HTN) Father Hx Family Cardiac Disorders: Yes (HTN) Medications and Allergies Amlodipine Besylate 10 mg PO DAILY 08/21/17 [History] Atorvastatin [Lipitor] 10 mg PO HS 08/21/17 [History] Furosemide [Lasix] 40 mg PO DAILY 08/21/17 [History] Lisinopril [Zestril] 40 mg PO BID 08/21/17 [History] Metoprolol Succinate 100 mg PO BID 08/21/17 [History] Omeprazole [PriLOSEC] 40 mg PO DAILY 08/21/17 [History] Potassium Chloride [Klor-Con 10] 10 meq PO DAILY 08/21/17 [History] Venlafaxine HCl [Venlafaxine HCl ER] 150 mg PO DAILY 08/21/17 [History] cloNIDine HCl [Clonidine HCl] 0.3 mg PO TID 08/21/17 [History] traZODone [TraZODone] 50 mg PO HS 08/21/17 [History] 3 Allergy/AdvReac Type Severity Reaction Status Date / Time No Known Allergies Allergy Unverified 12/21/16 11:32 All Systems Review: A 10-system review of systems was performed and is negative for pertinent findings except as documented above in the HPI. Physical Examination Vital Signs, Last 4 Hours Temp Pulse Resp BP Pulse Ox 08/23/17 10:52 97.9 F 87 14 116/82 93 General: Conversant, No Apparent Distress HEENT: Atraumatic, Normocephaly, Mucus Membranes Moist Neck: No JVD, Normal carotid pulses Cardiac: No Murmur, Other (Irregularly irregular) Lungs: Normal Breath Sounds, No Wheeze, Rales, Rhonchi Neuro: Alert and responsive, No focal deficits noted Abdomen: Soft, Non-Tender Skin: No rashes noted on visualized skin Musculoskeletal: No Chest Wall Tenderness Extremities: No Clubbing, No Cyanosis, No Edema, Normal Pulses Results 08/23/17 03:05 08/23/17 03:05 Lab Results 08/22/17 08/22/17 08/23/17 13:50 22:05 03:05 WBC 9.3 Hgb 11.6 Hct 36.7 Plt Count 208 APTT 95.6 H 52.0 H Sodium Potassium Chloride Carbon Dioxide BUN Creatinine Glucose Calcium 08/23/17 08/23/17 03:05 06:07 WBC Hgb Hct Plt Count APTT 80.4 H D Sodium 143 Potassium 3.4 L Chloride 104 Carbon Dioxide 28 BUN 14 Creatinine 1.21 H Glucose 130 H Calcium 9.3 - Imaging and Cardiology Stress Test: report reviewed Echo: pending - EKG Interpretation EKG results cardiology: personally reviewed (atrial fibrillation with RVR) Consult Discharge Plan - Plan Additional Instructions: pcp requested Referrals: Gracie Holly MD [Primary Care Provider] - 09/04/17 11:15 am <Colton Dozier - Last Filed: 08/24/17 12:03> Date of Encounter: 08/23/17 Time of Encounter: 19:15 Assessment and Plan Discussion w patient/family: The assessment and plan as outlined above was discussed with the patient and/or family members who expressed understanding and agreement. All questions were answered. Thank you for involving us in the care of your patient. Please call with any questions. History of Present Illness History of present illness: Ms. Nazario is a 76 year old female All Systems Review: A 10-system review of systems was performed and is negative for pertinent findings except as documented above in the HPI. Physical Examination Vital Signs, Last 4 Hours Temp Pulse Resp BP Pulse Ox 08/23/17 15:53 98.0 F 72 12 116/82 92 Results 08/23/17 03:05 08/24/17 02:56 Lab Results 08/22/17 08/23/17 08/23/17 22:05 03:05 03:05 WBC 9.3 Hgb 11.6 Hct 36.7 Plt Count 208 APTT 52.0 H Sodium Potassium Chloride Carbon Dioxide BUN Creatinine Glucose Calcium TSH 1.514 08/23/17 08/23/17 08/23/17 03:05 06:07 12:18 WBC Hgb Hct Plt Count APTT 80.4 H D 73.4 H Sodium 143 Potassium 3.4 L Chloride 104 Carbon Dioxide 28 BUN 14 Creatinine 1.21 H Glucose 130 H Calcium 9.3 TSH - Attending Attestation Pt seen and examined independently, chart reviewed, essentially agree with documented findings below, my evaluation as follows: IMP/plan 1. A fib with RVR, unknown duration, still rapid ventricular response on diltiazem 20 mg IV q hr, and receiveing IV dig x 2, oral metroprolol. Will decrease and discontinue clonidine, increase metoprolol as blood pressure allows for better rate control. Pt is on heparin for primary stroke risk reduction for A fib, will change to Xaralto when switch to oral, echo pending for LA chamber size, LV function determination, evaluate for new wall motion abnormalites. 2. Acute exacerbation HFpEF, due to decreased filling times with rapid ventricular response to A fib, continue diuresis, rate control, repeat echo. 3. Benign essential hypertension: BP controlled, monitor with decreasing/ discontinuation clonidine, increasing metoprolol. Will follow with you, with additional recomendations pending results of cardiac imaging, rate control.
[2017-08-23] MEDS ORDERED: Ondansetron 4 MG/2 ML VIAL IVP ONE (13:52)
[2017-08-23] MEDS: *HR* Rivaroxaban 10 MG TABLET PO SCH (17:22)
[2017-08-23] MEDS: traZODone 50 MG TABLET PO SCH (21:19)
[2017-08-24 04:10] LABS: Potassium 3.6 mEq/L (3.5-4.5)
[2017-08-24 04:11] LABS: Calcium 8.9 mg/dL (8.6-10.8)
[2017-08-24] MEDS: Furosemide 40 MG/4 ML VIAL IVP SCH ×2 (07:37→17:55)
[2017-08-24] MEDS: cloNIDine HCl 0.1 MG TABLET PO SCH (07:38)
[2017-08-24] MEDS: Lisinopril 20 MG TABLET PO SCH (07:38)
[2017-08-24] MEDS: Metoprolol XL (24 HR) Succ 50 MG TAB.ER.24H PO SCH ×2 (07:38→19:50)
[2017-08-24] MEDS: Venlafaxine XR (24 HR) 150 MG CAP.ER.24H PO SCH (07:39)
[2017-08-24] MEDS: Aspirin Enteric Coated 81 MG Tablet PO SCH (09:39)
--- NOTE | 2017-08-24 09:48 | Internal Med Progress Note ---
<Orlando Gill - Last Filed: 08/24/17 15:43> Date of Encounter: 08/24/17 Time of Encounter: 09:47 - Assessment and plan (1) Atrial fibrillation with RVR Current Visit: Yes Status: Acute Assessment and plan: 08/24/17 Rate has been challenging to control Cardizem drip converted to Cardizem CD and Toprol XL increased to 150mg BID. Titrate off clonidine tomorrow. While using the rest room, the patient had an episode of nausea, vomiting, shortness of breath, and jaw pain. Stat 12-lead EKG was ordered, troponins ordered. Initial troponin negative, watch for timed. EKG showed no substantial changes compared to previous on 08/21/17, according to Dr. Dozier Cardiology is on board 08/23/17 Rate has been poorly controlled on Cardizem drip despite increasing to 20 mg/hr. Received IV digoxin 0.25 IV and 0.125 IV in the evening yesterday Cardiology is consulted, echo is pending Will follow cardiology recommendations for titrating off clonidine to increased Toprol dose. Cardiology recommends anticoagulation with Xarelto 08/22/17 Newly diagnosed Rate controlled on cardizem drip Currently on Heparin, therapeutic dose. Anti-Xa 1.07 Echo pending, likely to start xarelto following echo (2) Acute exacerbation of CHF (congestive heart failure) Current Visit: Yes Status: Acute Assessment and plan: 08/24/17 Fluid balance +370ml Patient is having no SOB, chest pain. States she can lie flat 08/23/17 CHF with preserved Ejection Fraction (60-65% 12/28/16) Cardiology is on board, will follow recommendations. Continue IV Lasix 40 mg twice a day, strict I's and O's Daily weight. Goal increased Toprol following titration off clonidine. Patient treated with beta don, JILLIAN inhibitor, ASA and statin. 06/21/17 CHF with preserved Ejection Fraction (60-65% 12/28/16) IV Lasix 40mg BID, Strict I's/O's. Patient mentions that she was unable to use restroom yesterday, but has had frequent urination since intiating IV lasix here Continue home meds Qualifiers: Congestive heart failure type: diastolic Qualified Code(s): I50.33 - Acute on chronic diastolic (congestive) heart failure (3) Morbid obesity with BMI of 50.0-59.9, adult Current Visit: Yes Status: Acute (4) HTN (hypertension) Current Visit: Yes Status: Chronic Assessment and plan: 08/24/17 Toprol XL increased to 150mg BID Titrate off clonidine Tomorrow Consider decreasing lisinopril to 20mg in order to allow greater dose of BB for Afib control 08/23/17 Reinitiate metoprolol XL at 100mg twice a day Decrease clonidine dose to twice a day Cardizem drip increased to 20 mg per hour Continue to monitor 08/22/17 Metoprolol has been held Cardizem drip Continue to monitor Qualifiers: Hypertension type: essential hypertension Qualified Code(s): I10 - Essential (primary) hypertension (5) HLD (hyperlipidemia) Current Visit: Yes Status: Chronic Assessment and plan: Continue home meds Qualifiers: Hyperlipidemia type: mixed hyperlipidemia Qualified Code(s): E78.2 - Mixed hyperlipidemia (6) Hypokalemia Current Visit: Yes Status: Acute Assessment and plan: 08/24/17 K 3.6 Continue PO KCl at 20mEq 08/23/17 Potassium 3.4 today Increase oral potassium chloride 20 mEq We will recheck tomorrow (7) DVT prophylaxis Current Visit: Yes Status: Acute Assessment and plan: On therapeutic heparin dose - Subjective Interval history: Patient is resting comfortable in bed at the time of exam. She had no acute complaints overnight. She did not experience any palpitations, chest pain, shortness of breath. She says that she feels well. - Constitutional Vitals: Temp Pulse Resp BP Pulse Ox 97.7 F 94 18 133/77 93 08/24/17 07:16 08/24/17 07:16 08/24/17 07:16 08/24/17 07:16 08/24/17 07:16 General appearance: Present: cooperative, morbidly obese, pleasant, no acute distress, answers questions appropriately - Head Head exam: Present: atraumatic, normocephalic - Eye Eye exam: Present: PERRL, conjuntiva pink, sclera anicteric Pupils: Present: PERRL - Neck Neck exam general surgery: Present: supple, trachea midline. Absent: lymphadenopathy - Respiratory Respiratory exam: Present: CTAB. Absent: accessory muscle use, rales, rhonchi, wheezes - Cardiovascular Cardiovascular exam: Present: irregular rhythm, +S1, +S2. Absent: diastolic murmur, gallop, rubs, systolic murmur - GI/Abdominal GI/Abdominal exam: Present: normal bowel sounds, soft, no peritoneal signs. Absent: distended, tenderness - Extremities Exam Extremities exam: Present: warm, radial pulses palpable and symmetrical. Absent : calf tenderness, cyanotic, pedal edema - Neurological Exam Neurological exam: Present: CN II-XII intact, oriented X3, no focal deficits. Absent: pronater drift, facial droop, speech deficit - Skin Skin exam: Present: dry, intact Internal Medicine: Result - Labs CBC & Chem 7: 08/23/17 03:05 08/24/17 02:56 Labs: BMP 08/24/17 02:56 Sodium 145 Potassium 3.6 Chloride 105 Carbon Dioxide 27 BUN 13 Creatinine 1.17 H Glucose 112 H Calcium 8.9 - ABG Interpretation ABG results: PT/INR, D-dimer PT 12.0 Seconds (9.4-12.1) 08/21/17 15:01 D-Dimer 1156 ng/mLFEU (0-500) H 08/21/17 15:15 - Impressions Impressions Echocardiogram 08/22/17 01:05 Impressions: Somewhat technically challenging image quality due to body habitus and presence of atrial fibrillation with elevated heart rate, 110s. Overall, LV systolic appears normal, estimated EF 55%. Moderate increase in LV wall thickness. RV is mildly dilated with normal function. Moderate aortic regurgitation. Mild mitral regurgitation. Moderate tricuspid regurgitation. Mild-moderate pulmonic regurgitation. Mild pulmonary hypertension. Left Ventricular Wall Motion: Rest Echo Findings The mid inferior lateral and basal inferior lateral mccoy were not visualized. All other wall segments showed normal motion. Findings: Study Quality * Technically challenging due to body habitus. ECG Findings * Atrial fibrillation. HR 110's. Left Ventricle * Indeterminate diastolic function. * Moderate concentric left ventricular hypertrophy. * Normal LV size. * Overall, LV systolic function appears normal, estimated EF 50%. Aorta * Normally sized aortic root. Aortic Valve * Aortic valve not well visualized. * No aortic stenosis. * Moderate aortic regurgitation. Mitral Valve * Normal mitral valve structure. * No mitral stenosis. * Mild-moderate mitral annular calcification * Mild mitral regurgitation. Tricuspid Valve * Tricuspid valve not well visualized. * Moderate tricuspid regurgitation. * Estimated RA pressure is 8 mmHg. * Estimated RVSP is 44 mmHg. * Mild pulmonary hypertension. Pulmonic Valve * Pulmonic valve is not well visualized. * No pulmonic stenosis. * Mild-moderate pulmonic regurgitation. Pulmonary Artery * Pulmonary artery not well visualized. Right Ventricle * Mildly dilated RV with normal function. Left Atrium * Severely dilated left atrium. Right Atrium * Severely dilated right atrium. Pericardium * There is no pericardial effusion present. Interatrial Septum * No evidence of PFO by color Doppler. IVC * The IVC is dilated. * < 50% respiratory change. Consult Discharge Plan - Plan Additional Instructions: pcp requested Referrals: Gracie Holly MD [Primary Care Provider] - 09/04/17 11:15 am <Clifford Ellison - Last Filed: 08/24/17 18:44> Date of Encounter: 08/24/17 - Assessment and plan (1) Atrial fibrillation Current Visit: Yes Status: Acute Qualifiers: Atrial fibrillation type: persistent Qualified Code(s): I48.1 - Persistent atrial fibrillation (2) Acute exacerbation of CHF (congestive heart failure) Current Visit: Yes Status: Acute Qualifiers: Congestive heart failure type: diastolic Qualified Code(s): I50.33 - Acute on chronic diastolic (congestive) heart failure (3) HTN (hypertension) Current Visit: Yes Status: Chronic Qualifiers: Hypertension type: essential hypertension Qualified Code(s): I10 - Essential (primary) hypertension (4) Morbid obesity with BMI of 50.0-59.9, adult Current Visit: Yes Status: Acute (5) HLD (hyperlipidemia) Current Visit: Yes Status: Chronic Qualifiers: Hyperlipidemia type: mixed hyperlipidemia Qualified Code(s): E78.2 - Mixed hyperlipidemia (6) CKD (chronic kidney disease) stage 3, GFR 30-59 ml/min Current Visit: Yes Status: Chronic - Constitutional Vitals: Temp Pulse Resp BP Pulse Ox 98.5 F 130 18 110/68 93 08/24/17 15:26 08/24/17 15:26 08/24/17 15:26 08/24/17 15:26 08/24/17 15:26 Internal Medicine: Result - Labs CBC & Chem 7: 08/23/17 03:05 08/24/17 02:56 Labs: BMP 08/24/17 02:56 Sodium 145 Potassium 3.6 Chloride 105 Carbon Dioxide 27 BUN 13 Creatinine 1.17 H Glucose 112 H Calcium 8.9 Cardiac Enzymes 08/24/17 08/24/17 Range/Units 11:17 17:56 Troponin I 0.00 0.00 (0-0.03) ng/mL - ABG Interpretation ABG results: PT/INR, D-dimer PT 12.0 Seconds (9.4-12.1) 08/21/17 15:01 D-Dimer 1156 ng/mLFEU (0-500) H 08/21/17 15:15 - Attending Attestation I examined this patient and my medical decision-making was reviewed with the Resident Physician on 08/24/17. I agree with the documented findings, disposition and treatment plan as described except to the extent set forth below. Ms Nazario is currently admitted for rapid atrial fibrillation. She continues to have issues with rapid heart rate. She also had an episode of near syncope today. She remains moderate to high risk due to potential for worsening cardiac status. Ms. Nazario feels OK at this time. She was weak this AM with near syncopal episode. No fever or chills. No CP or SOB. Off Cardizem drip right now. Exam Alert. Comfortable Mucus membranes dry Heart irreg and rapid Lungs diminished Abd soft I/P 1. Persistent a fib 2. CHF Further diagnoses and plan as above.
[2017-08-24] MEDS: Ondansetron 4 MG/2 ML VIAL IVP PRN (10:32)
--- NOTE | 2017-08-24 10:59 | Cardiology Progress Note ---
Date of Encounter: 08/24/17 Time of Encounter: 10:57 Assessment and Plan (1) Atrial fibrillation with RVR Current Visit: Yes Status: Acute Atrial fibrillation with RVR. Unknown timing of onset. C/o palpitations over the past year. More frequent in the last week. Avg HR 98 BPM over last 4 hours. Noted to have several runs of atrial fibrillation with RVR. HR 90-120 on my exam. Min HR 60bpm at 0830 am. Convert IV cardizem to Cardizem CD 360 mg and increase toprol XL to 150 mg BID from 100 mg BID. Received IV digoxin 0.25 IV and 0.125 IV x1 08/22/17. Recommend titrating off clonidine. Decreased yesterday, I will stop today, after she received one dose this morning, to allow more b/p room to increase toprol as needed. TTE - Somewhat technically challenging image quality due to body habitus and presence of atrial fibrillation with elevated heart rate, 110s. Overall, LV systolic appears normal, estimated EF 55%. Moderate increase in LV wall thickness. RV is mildly dilated with normal function. Moderate aortic regurgitation. Mild mitral regurgitation. Moderate tricuspid regurgitation. Mild -moderate pulmonic regurgitation. Mild pulmonary hypertension. TSH is normal. Will consider ROHIT/ DCCV if unable to rate control. CHADS VASC=4. (HTN, CHF, age, gender.) AC with coumadin vs NOAC discussed. Indication, use, SE discussed. She agrees. Agree with xarelto. Xarelto sent to pharmacy. Levy check pending. (2) Acute exacerbation of CHF (congestive heart failure) Current Visit: Yes Status: Acute Presented with SOB. Pulmonary edema on CT scan. BNP 1300. Agree with IV lasix. Net positive 1400ml today. Not accurate as no out-put documented. Patient reports increased urine out-put. Weight is down 3Kg. Stress echocardiogram 12/2016 showed EF 60%. TTE shows EF 55%. Likely diastolic dysfunction in the setting of afib with RVR. Low sodium diet. Daily weights and strict I&O. Qualifiers: Congestive heart failure type: diastolic Qualified Code(s): I50.33 - Acute on chronic diastolic (congestive) heart failure Discussion w patient/family: The assessment and plan as outlined above was discussed with the patient and/or family members who expressed understanding and agreement. All questions were answered. Thank you for involving us in the care of your patient. Please call with any questions. Subjective Principal diagnosis: atrial fibrillation with RVR, distolic dysfunction. Interval history: Ms. Nazario reports she is breathing better. denies chest pain or palpitations. Continues to have dyspnea with activity. BLE edema improved. Objective Vital Signs, Last 4 Hours Temp Pulse Resp BP Pulse Ox 08/24/17 07:16 97.7 F 94 18 133/77 93 General: Conversant, No Apparent Distress, Other (Obese female) HEENT: Atraumatic, Normocephaly, Mucus Membranes Moist Neck: No JVD, Normal carotid pulses Cardiac: Other (Irregular) Lungs: Normal Breath Sounds, No Wheeze, Rales, Rhonchi Neuro: Alert and responsive, No focal deficits noted Abdomen: Soft, Non-Tender Skin: No rashes noted on visualized skin Musculoskeletal: No Chest Wall Tenderness Extremities: No Clubbing, No Cyanosis, No Edema, Normal Pulses Results 08/23/17 03:05 08/24/17 02:56 Lab Results 08/23/17 08/23/17 08/24/17 03:05 12:18 02:56 APTT 73.4 H Sodium 145 Potassium 3.6 Chloride 105 Carbon Dioxide 27 BUN 13 Creatinine 1.17 H Glucose 112 H Calcium 8.9 TSH 1.514 Chest X-Ray 08/21/17 13:29 IMPRESSION: Mild interstitial edema with some left basilar atelectasis. D/ / 08/21/2017 15:12:30 Cooper Cota MD / samanta Interpreting Provider: Cooper Cota MD Chest CTA 08/21/17 16:14 IMPRESSION: Cardiomegaly with pulmonary edema. No CT evidence of pulmonary embolism. D/ / Kanwal Donato Cha, MD / Kanwal Donato Cha, MD Interpreting Provider: Kanwal Donato Cha, MD Echocardiogram 08/22/17 01:05 Impressions: Somewhat technically challenging image quality due to body habitus and presence of atrial fibrillation with elevated heart rate, 110s. Overall, LV systolic appears normal, estimated EF 55%. Moderate increase in LV wall thickness. RV is mildly dilated with normal function. Moderate aortic regurgitation. Mild mitral regurgitation. Moderate tricuspid regurgitation. Mild-moderate pulmonic regurgitation. Mild pulmonary hypertension. - EKG Interpretation EKG results cardiology: personally reviewed Consult Discharge Plan - Plan Additional Instructions: pcp requested Referrals: Gracie Holly MD [Primary Care Provider] - 09/04/17 11:15 am
[2017-08-24] MEDS: Diltiazem CD (24hr) 180 MG CAPSULE PO SCH (11:48)
--- NOTE | 2017-08-24 14:53 | Arterial Study Report ---
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 Recommendations: After imaging the patient returned to their room. Test completed on 08/24/2017 at 9:54:58 am. Findings Renal Anatomy: The right kidney size measures 10 x 4.1 x 5 cm. The left kidney size measures 9.1 x 4.4 x 4.8 cm. Renal Duplex: Right: The right mid renal artery was not well visualized. Prior Study: No prior study available for comparison. Renal Duplex Right RAR:1.3 Left RAR:1.9 Side Vessel PSV EDV RI PI Accel Aorta 29.00 6.00 0.79 Left Renal Artery Hilum 27.00 7.00 0.74 Left Distal Renal Artery 28.00 8.00 0.71 Left Mid Renal Artery 44.00 13.00 0.70 Left Proximal Renal Artery 56.00 12.00 0.79 Right Renal Artery Hilum 31.00 9.00 0.71 Right Distal Renal Artery 34.00 9.00 0.74 Right Proximal Renal Artery 38.00 8.00 0.79 Updated by Janak Hernandez MD, FACS on 08/24/2017 2:45:38 PM Janak Hernandez MD electronically signed on 08/24/2017 2:46:01 PM with status of Final
[2017-08-24] MEDS: *HR* Rivaroxaban 10 MG TABLET PO SCH (17:55)
[2017-08-24] MEDS: traZODone 50 MG TABLET PO SCH (22:04)
[2017-08-25 03:14] LABS: Calcium 8.7 mg/dL (8.6-10.8); Potassium 3.8 mEq/L (3.5-4.5)
[2017-08-25 03:40] LABS: Basophils # 0.1 K/mcL (0.0-0.2); Basophils % 0.6 %; Eosinophils # 0.2 K/mcL (0.0-0.6); Eosinophils % 2.3 %; Hematocrit 37.6 % (35.3-44.9); Hemoglobin 11.6 g/dL (11.5-15.4); Immature Granulocytes % 0.6 % (0-4); Lymphocytes % 25.3 %; Mean Corpuscular HGB Conc 30.9 g/dL (31.6-35.5); Mean Corpuscular Hemoglobin 27.7 pg (28.0-33.3); Mean Corpuscular Volume 89.7 fL (83.0-100.0); Mean Platelet Volume 12.1 fL (9.4-12.4); Monocytes # 0.8 K/mcL (0.0-1.3); Monocytes % 9.4 %; Neutrophils # 4.9 K/mcL (1.6-8.9); Platelet Count 216 K/mcL (140-400); Red Blood Count 4.19 M/mcL (3.82-4.97); Red Cell Distribution Width 13.4 % (11.5-14.5); Segmented Neutrophils % 61.8 %
[2017-08-25] MEDS ORDERED: Diltiazem CD (24hr) 180 MG CAPSULE PO ONE (07:48)
--- NOTE | 2017-08-25 08:04 | Event Note ---
Date of Encounter: 08/25/17 Time of Encounter: 08:00 - Cardiology Event Note Laboratory Tests 08/21/17 08/22/17 08/22/17 14:12 00:45 05:50 Troponin I 0.00 0.00 0.02 08/22/17 08/24/17 08/24/17 11:43 11:17 17:56 Troponin I 0.00 0.00 0.00
[2017-08-25] MEDS: Aspirin Enteric Coated 81 MG Tablet PO SCH (08:05)
[2017-08-25] MEDS: Furosemide 40 MG/4 ML VIAL IVP SCH (08:05)
[2017-08-25] MEDS: Lisinopril 20 MG TABLET PO SCH (08:05)
[2017-08-25] MEDS: Metoprolol XL (24 HR) Succ 50 MG TAB.ER.24H PO SCH (08:05)
[2017-08-25] MEDS: Venlafaxine XR (24 HR) 150 MG CAP.ER.24H PO SCH (08:05)
--- NOTE | 2017-08-25 11:11 | Cardiology Progress Note ---
Date of Encounter: 08/25/17 Time of Encounter: 08:30 Assessment and Plan (1) Atrial fibrillation with RVR Current Visit: Yes Status: Acute Per cardiology: -Atrial fibrillation with RVR. Unknown timing of onset. C/o palpitations over the past year. More frequent in the last week. -Average HR per tele overnight noted to be 120, atrial fibrilaltion. -ON cardizem CD 360mg and toprol 150mg BID. -TTE - Somewhat technically challenging image quality due to body habitus and presence of atrial fibrillation with elevated heart rate, 110s. Overall, LV systolic appears normal, estimated EF 55%. Moderate increase in LV wall thickness. RV is mildly dilated with normal function. Moderate aortic regurgitation. Mild mitral regurgitation. Moderate tricuspid regurgitation. Mild -moderate pulmonic regurgitation. Mild pulmonary hypertension. -TSH is normal. -CHADS VASC=4. (HTN, CHF, age, gender.) Started on xarelto. First dose yesteday. -ECG on admission with atrial fibrillation, HR 92. Qt 327, Qtc 376. -Per discussion with , will start sotalol 80mg BID tonight. Will stop toprol. -Patient will need to be inpatient for a total of 6 doses of sotalol. Will check ECG daily. (2) Acute exacerbation of CHF (congestive heart failure) Current Visit: Yes Status: Acute Per cardiology: -Presented with SOB. Pulmonary edema on CT scan. -BNP 1300. -Net positive fluid balance. Not accurate as no out-put documented. Patient reports increased urine out-put. Weight is down about 7kg. -Stress echocardiogram 12/2016 showed EF 60%. -TTE shows EF 55%. -Likely diastolic dysfunction in the setting of afib with RVR. -Low sodium diet. -Daily weights and strict I&O. -Reports shortness of breath imrpoved today. Mild pedal edema noted. -Will switch lasix to po. -Will continue to monitor. Qualifiers: Congestive heart failure type: diastolic Qualified Code(s): I50.33 - Acute on chronic diastolic (congestive) heart failure Discussion w patient/family: The assessment and plan as outlined above was discussed with the patient who expressed understanding and agreement. All questions were answered. Thank you for involving us in the care of your patient. Please call with any questions. Discussed and reviewed with . Subjective Principal diagnosis: atrial fibrillation with RVR, distolic dysfunction. Interval history: Patient denies chest pain or jaw pain overnight. Patient reports she feels ok today. Denies palpitations or lfuttering. Objective Vital Signs, Last 4 Hours Temp Pulse Resp BP Pulse Ox 08/25/17 07:51 97.9 F 145 18 125/93 98 General: Conversant, No Apparent Distress HEENT: Atraumatic, Normocephaly, Mucus Membranes Moist Neck: No JVD, Normal carotid pulses Cardiac: Other (Irregularly, irregular. Tachycardic. ) Lungs: Normal Breath Sounds, No Wheeze, Rales, Rhonchi Neuro: Alert and responsive, No focal deficits noted Abdomen: Soft, Non-Tender Skin: No rashes noted on visualized skin Musculoskeletal: No Chest Wall Tenderness Extremities: No Clubbing, No Cyanosis, Normal Pulses, Other (Mild bilateral pedal edema, non-pitting. ) Results 08/25/17 02:39 08/25/17 02:39 Lab Results Active Medications Acetaminophen (Tylenol) 650 mg PO Q6HR PRN PRN Reason: Pain Stop: 02/20/18 23:54 Last Admin: 08/23/17 03:16 Dose: 650 mg Aspirin (Aspirin Ec) 81 mg PO DAILY ANGIE Stop: 02/21/18 09:01 Last Admin: 08/25/17 08:05 Dose: 81 mg Atorvastatin Calcium (Lipitor) 10 mg PO HS ANGIE Stop: 02/20/18 21:01 Last Admin: 08/24/17 22:04 Dose: 10 mg Diltiazem HCl (Cardizem Cd) 360 mg PO DAILY ANGIE Stop: 02/23/18 11:01 Last Admin: 08/24/17 11:48 Dose: 360 mg Furosemide (Lasix) 40 mg IVP BIDDIURETIC ANGIE Stop: 02/21/18 08:01 Last Admin: 08/25/17 08:05 Dose: 40 mg Lisinopril (Zestril) 40 mg PO DAILY ANGIE Stop: 02/22/18 09:01 Last Admin: 08/25/17 08:05 Dose: 40 mg Morphine Sulfate (Morphine Sulfate) 2 mg IVP Q2H PRN PRN Reason: Chest Pain Stop: 02/20/18 23:32 Naloxone HCl (Narcan) 0.4 mg IVP Q2MIN PRN PRN Reason: Opioid Reversal Stop: 02/20/18 23:35 Omeprazole (Prilosec) 40 mg PO 0730 [facility] Stop: 02/22/18 07:31 Last Admin: 08/25/17 08:04 Dose: 40 mg Ondansetron HCl (Zofran) 4 mg IVP Q8HR PRN PRN Reason: Nausea And Vomiting Stop: 02/20/18 23:35 Last Admin: 08/24/17 10:32 Dose: 4 mg Potassium Chloride (Potassium Chloride) 20 meq PO DAILY ANGIE Stop: 02/22/18 09:01 Last Admin: 08/25/17 08:04 Dose: 20 meq Rivaroxaban (Xarelto) 20 mg PO 1700 [facility] Stop: 02/22/18 17:01 Last Admin: 08/24/17 17:55 Dose: 20 mg Trazodone HCl (Trazodone) 50 mg PO HS [facility] Stop: 02/20/18 23:46 Last Admin: 08/24/17 22:04 Dose: 50 mg Venlafaxine HCl (Effexor Xr) 150 mg PO DAILY ANGIE PRN Reason: Protocol Stop: 02/21/18 09:01 Last Admin: 08/25/17 08:05 Dose: 150 mg Laboratory Tests 08/24/17 08/24/17 08/25/17 11:17 17:56 02:39 Hgb 11.6 Creatinine Troponin I 0.00 0.00 08/25/17 02:39 Hgb Creatinine 1.28 H Troponin I - Imaging and Cardiology Chest Xray: report reviewed Echo: report reviewed - EKG Interpretation EKG results cardiology: personally reviewed (ECG with atrial fibrilaltion, HR 92. Qt 327, Qtc 376.), other (Telemetry reviewed with average HR previous 12 horus noted to be 120, atrial fibrillation. Longest pause 1.9 seconds. PVCs and couplets noted.) Consult Discharge Plan - Plan Additional Instructions: pcp requested Referrals: Gracie Holly MD [Primary Care Provider] - 09/04/17 11:15 am
[2017-08-25] MEDS: Ondansetron 4 MG/2 ML VIAL IVP PRN (13:47)
--- NOTE | 2017-08-25 15:57 | Internal Med Progress Note ---
<Orlando Gill - Last Filed: 08/25/17 15:54> Date of Encounter: 08/25/17 Time of Encounter: 08:30 - Assessment and plan (1) Atrial fibrillation with RVR Current Visit: Yes Status: Acute Assessment and plan: 08/25/17 Paroxysmal tachycardia persistent overnight Per cardiology: Stop toprol, start sotalol Patient will need inpatient monitoring for 6 total doses of sotalol, with daily EKG. 08/24/17 Rate has been challenging to control Cardizem drip converted to Cardizem CD and Toprol XL increased to 150mg BID. Titrate off clonidine tomorrow. While using the rest room, the patient had an episode of nausea, vomiting, shortness of breath, and jaw pain. Stat 12-lead EKG was ordered, troponins ordered. Initial troponin negative, watch for timed. EKG showed no substantial changes compared to previous on 08/21/17, according to Dr. Dozier Cardiology is on board (2) Acute exacerbation of CHF (congestive heart failure) Current Visit: Yes Status: Acute Assessment and plan: 08/25/17 Fluid Balance of +360mL Toprol will be dc'd in exchange for Sotalol Appears euvolemic at this time 08/24/17 Fluid balance +370ml Patient is having no SOB, chest pain. States she can lie flat 08/23/17 CHF with preserved Ejection Fraction (60-65% 12/28/16) Cardiology is on board, will follow recommendations. Continue IV Lasix 40 mg twice a day, strict I's and O's Daily weight. Goal increased Toprol following titration off clonidine. Patient treated with beta don, JILLIAN inhibitor, ASA and statin. Qualifiers: Congestive heart failure type: diastolic Qualified Code(s): I50.33 - Acute on chronic diastolic (congestive) heart failure (3) Morbid obesity with BMI of 50.0-59.9, adult Current Visit: Yes Status: Acute (4) HTN (hypertension) Current Visit: Yes Status: Chronic Assessment and plan: 08/25/17 Discontinue Toprol, Start Sotalol Patient is finished with clonidine Cardiology managing medications 08/24/17 Toprol XL increased to 150mg BID Titrate off clonidine Tomorrow Consider decreasing lisinopril to 20mg in order to allow greater dose of BB for Afib control Qualifiers: Hypertension type: essential hypertension Qualified Code(s): I10 - Essential (primary) hypertension (5) HLD (hyperlipidemia) Current Visit: Yes Status: Chronic Assessment and plan: Continue home meds Qualifiers: Hyperlipidemia type: mixed hyperlipidemia Qualified Code(s): E78.2 - Mixed hyperlipidemia (6) Hypokalemia Current Visit: Yes Status: Acute Assessment and plan: 08/25/17 K 3.8 Continue PO KCl at 10mEq for maintenance 08/24/17 K 3.6 Continue PO KCl at 20mEq (7) DVT prophylaxis Current Visit: Yes Status: Acute Assessment and plan: On therapeutic heparin dose - Subjective Interval history: Patient is resting comfortable in bed at the time of exam. She had no acute complaints overnight. She did not experience any palpitations, chest pain, shortness of breath. She says that she feels well. - Constitutional Vitals: Temp Pulse Resp BP Pulse Ox 97.9 F 145 18 125/93 98 08/25/17 07:51 08/25/17 07:51 08/25/17 07:51 08/25/17 07:51 08/25/17 07:51 General appearance: Present: cooperative, morbidly obese, pleasant, no acute distress, answers questions appropriately Exam: - Head Head exam: Present: atraumatic, normocephalic - Eye Eye exam: Present: PERRL, conjuntiva pink, sclera anicteric Pupils: Present: PERRL - Neck Neck exam general surgery: Present: supple, trachea midline. Absent: lymphadenopathy - Respiratory Respiratory exam: Present: CTAB. Absent: accessory muscle use, rales, rhonchi, wheezes - Cardiovascular Cardiovascular exam: Present: irregular rhythm, +S1, +S2. Absent: diastolic murmur, gallop, rubs, systolic murmur - GI/Abdominal GI/Abdominal exam: Present: normal bowel sounds, soft, no peritoneal signs. Absent: distended, tenderness - Extremities Exam Extremities exam: Present: warm, radial pulses palpable and symmetrical. Absent : calf tenderness, cyanotic, pedal edema - Neurological Exam Neurological exam: Present: CN II-XII intact, oriented X3, no focal deficits. Absent: pronater drift, facial droop, speech deficit - Skin Skin exam: Present: dry, intact Internal Medicine: Result - Labs CBC & Chem 7: 08/25/17 02:39 08/25/17 02:39 Labs: Short CBC 08/25/17 Range/Units 02:39 WBC 8.0 (4.3-11.1) K/mcL Hgb 11.6 (11.5-15.4) g/dL Hct 37.6 (35.3-44.9) % Plt Count 216 (140-400) K/mcL Neutrophils # 4.9 (1.6-8.9) K/mcL BMP 08/25/17 02:39 Sodium 143 Potassium 3.8 Chloride 103 Carbon Dioxide 30 H BUN 14 Creatinine 1.28 H Glucose 127 H Calcium 8.7 Cardiac Enzymes 08/24/17 Range/Units 17:56 Troponin I 0.00 (0-0.03) ng/mL - ABG Interpretation ABG results: PT/INR, D-dimer PT 12.0 Seconds (9.4-12.1) 08/21/17 15:01 D-Dimer 1156 ng/mLFEU (0-500) H 08/21/17 15:15 Consult Discharge Plan - Plan Additional Instructions: pcp requested Referrals: Gracie Holly MD [Primary Care Provider] - 09/04/17 11:15 am <Clifford Ellison - Last Filed: 08/25/17 17:39> Date of Encounter: 08/25/17 - Assessment and plan (1) Atrial fibrillation Current Visit: Yes Status: Acute Qualifiers: Atrial fibrillation type: persistent Qualified Code(s): I48.1 - Persistent atrial fibrillation (2) Acute exacerbation of CHF (congestive heart failure) Current Visit: Yes Status: Acute Qualifiers: Congestive heart failure type: diastolic Qualified Code(s): I50.33 - Acute on chronic diastolic (congestive) heart failure (3) HTN (hypertension) Current Visit: Yes Status: Chronic Qualifiers: Hypertension type: essential hypertension Qualified Code(s): I10 - Essential (primary) hypertension (4) HLD (hyperlipidemia) Current Visit: Yes Status: Chronic Qualifiers: Hyperlipidemia type: mixed hyperlipidemia Qualified Code(s): E78.2 - Mixed hyperlipidemia (5) CKD (chronic kidney disease) stage 3, GFR 30-59 ml/min Current Visit: Yes Status: Chronic (6) Morbid obesity with BMI of 50.0-59.9, adult Current Visit: Yes Status: Acute - Constitutional Vitals: Temp Pulse Resp BP Pulse Ox 97.8 F 126 18 126/102 95 08/25/17 16:00 08/25/17 16:00 08/25/17 16:00 08/25/17 16:00 08/25/17 16:00 Internal Medicine: Result - Labs CBC & Chem 7: 08/25/17 02:39 08/25/17 02:39 Labs: Short CBC 08/25/17 Range/Units 02:39 WBC 8.0 (4.3-11.1) K/mcL Hgb 11.6 (11.5-15.4) g/dL Hct 37.6 (35.3-44.9) % Plt Count 216 (140-400) K/mcL Neutrophils # 4.9 (1.6-8.9) K/mcL BMP 08/25/17 02:39 Sodium 143 Potassium 3.8 Chloride 103 Carbon Dioxide 30 H BUN 14 Creatinine 1.28 H Glucose 127 H Calcium 8.7 Cardiac Enzymes 08/24/17 Range/Units 17:56 Troponin I 0.00 (0-0.03) ng/mL - ABG Interpretation ABG results: PT/INR, D-dimer PT 12.0 Seconds (9.4-12.1) 08/21/17 15:01 D-Dimer 1156 ng/mLFEU (0-500) H 08/21/17 15:15 - Attending Attestation I examined this patient and my medical decision-making was reviewed with the Resident Physician on 08/25/17. I agree with the documented findings, disposition and treatment plan as described except to the extent set forth below. Ms. Nazario is currently admitted for persistent rapid a fib. She remains moderate to high risk due to potential for worsening cardiac status. She will be starting on Sotalol tonight. Ms. Nazario has had some nausea today. No fever or chills. No CP. Heart rate remains high most of the time. Exam Alert. Comfortable Heart irreg and tachy Lungs no wheeze Abd soft I/P 1. Rapid a fib - starting Sotalol tonight 2. Nausea Further diagnoses and plan as above.
[2017-08-25] MEDS: *HR* Rivaroxaban 10 MG TABLET PO SCH (17:15)
[2017-08-25] MEDS: Furosemide 40 MG TABLET PO SCH (17:15)
--- NOTE | 2017-08-25 18:04 | Electrocardiograph Report ---
[address] [place], [place] [address] Test Date: 2017-08-24 Pat Name: Marisela Nazario Department: 111 Room: [id number] Gender: F Geriatrician: : 1940 Requested By: Clifford Ellison Order Number: [id number] Reading MD: Ashly Colunga Measurements Intervals Donner Rate: 92 P: [place]: 0 QRS: -49 QRSD: 107 T: 175 QT: 327 QTc: 376 Interpretive Statements ATRIAL FIBRILLATION INCOMPLETE RIGHT BUNDLE BRANCH BLOCK LEFT ANTERIOR FASCICULAR BLOCK VOLTAGE CRITERIA FOR LVH ST DEVIATION AND MODERATE T-WAVE ABNORMALITY, CONSIDER LATERAL ISCHEMIA V2 not suitable for interpretation Electronically Signed On 08-25-2017 18:02:01 EDT by Ashly Colunga
[2017-08-25] MEDS: traZODone 50 MG TABLET PO SCH (21:34)
[2017-08-26 05:27] LABS: Calcium 8.8 mg/dL (8.6-10.8); Potassium 4.1 mEq/L (3.5-4.5)
[2017-08-26] MEDS: Furosemide 40 MG TABLET PO SCH ×2 (08:21→17:17)
[2017-08-26] MEDS: Diltiazem CD (24hr) 180 MG CAPSULE PO SCH (08:21)
[2017-08-26] MEDS: Aspirin Enteric Coated 81 MG Tablet PO SCH (08:22)
[2017-08-26] MEDS: Venlafaxine XR (24 HR) 150 MG CAP.ER.24H PO SCH (08:22)
[2017-08-26] MEDS: Lisinopril 20 MG TABLET PO SCH (08:22)
[2017-08-26] MEDS: Ondansetron 4 MG/2 ML VIAL IVP PRN (08:22)
--- NOTE | 2017-08-26 11:34 | Internal Med Progress Note ---
<Daryn Kathleen - Last Filed: 08/26/17 11:39> Date of Encounter: 08/26/17 Time of Encounter: 11:29 - Assessment and plan (1) Atrial fibrillation with RVR Current Visit: Yes Status: Acute Assessment and plan: still in afib rvr with rate between 120-150s currently on sotalol has received two doses continue cardizem and toprol titarted off clonidine (2) Acute exacerbation of CHF (congestive heart failure) Current Visit: Yes Status: Resolved Assessment and plan: 2nd afib rvr resolved euvolemic continue lasix 40 BID BMP in morning: renal function baseline Qualifiers: Congestive heart failure type: diastolic Qualified Code(s): I50.33 - Acute on chronic diastolic (congestive) heart failure (3) DVT prophylaxis Current Visit: Yes Status: Acute Assessment and plan: on xarelto for afib (4) Morbid obesity with BMI of 50.0-59.9, adult Current Visit: Yes Status: Acute Assessment and plan: patient educated on benefits of exercise and diet (5) HTN (hypertension) Current Visit: Yes Status: Chronic Assessment and plan: BP controlled home clonidine d/c also on lisinopril and cardizem Qualifiers: Hypertension type: essential hypertension Qualified Code(s): I10 - Essential (primary) hypertension (6) HLD (hyperlipidemia) Current Visit: Yes Status: Chronic Assessment and plan: Continue home meds Qualifiers: Hyperlipidemia type: mixed hyperlipidemia Qualified Code(s): E78.2 - Mixed hyperlipidemia - Subjective Interval history: no acute events overnight. Still tachycardic. Denies CP, sob, abdominal pain, LE pain, swelling. - Constitutional Vitals: Temp Pulse Resp BP Pulse Ox 97.8 F 77 12 87/69 97 08/26/17 06:31 08/26/17 06:31 08/26/17 06:31 08/26/17 06:31 08/26/17 06:31 General appearance: Present: cooperative, morbidly obese, pleasant, no acute distress, answers questions appropriately - Respiratory Respiratory exam: Present: CTAB. Absent: accessory muscle use, rales, rhonchi, wheezes - Cardiovascular Cardiovascular exam: Present: irregular rhythm, tachycardia - GI/Abdominal GI/Abdominal exam: Present: normal bowel sounds, soft, no peritoneal signs. Absent: distended, tenderness - Extremities Exam Extremities exam: Present: warm, radial pulses palpable and symmetrical. Absent : calf tenderness, cyanotic, pedal edema - Skin Skin exam: Present: dry, intact Internal Medicine: Result - Labs CBC & Chem 7: 08/25/17 02:39 08/26/17 04:21 Labs: BMP 08/26/17 04:21 Sodium 146 H Potassium 4.1 Chloride 105 Carbon Dioxide 32 H BUN 14 Creatinine 1.11 Glucose 114 H Calcium 8.8 - ABG Interpretation ABG results: PT/INR, D-dimer PT 12.0 Seconds (9.4-12.1) 08/21/17 15:01 D-Dimer 1156 ng/mLFEU (0-500) H 08/21/17 15:15 Consult Discharge Plan - Plan Additional Instructions: pcp requested Referrals: Gracie Holly MD [Primary Care Provider] - 09/04/17 11:15 am <Clifford Ellison - Last Filed: 08/26/17 11:55> Date of Encounter: 08/26/17 - Assessment and plan (1) Atrial fibrillation Current Visit: Yes Status: Acute Qualifiers: Atrial fibrillation type: persistent Qualified Code(s): I48.1 - Persistent atrial fibrillation (2) Acute exacerbation of CHF (congestive heart failure) Current Visit: Yes Status: Resolved Qualifiers: Congestive heart failure type: diastolic Qualified Code(s): I50.33 - Acute on chronic diastolic (congestive) heart failure (3) HTN (hypertension) Current Visit: Yes Status: Chronic Qualifiers: Hypertension type: essential hypertension Qualified Code(s): I10 - Essential (primary) hypertension (4) HLD (hyperlipidemia) Current Visit: Yes Status: Chronic Qualifiers: Hyperlipidemia type: mixed hyperlipidemia Qualified Code(s): E78.2 - Mixed hyperlipidemia (5) CKD (chronic kidney disease) stage 3, GFR 30-59 ml/min Current Visit: Yes Status: Chronic (6) Morbid obesity with BMI of 50.0-59.9, adult Current Visit: Yes Status: Acute - Constitutional Vitals: Temp Pulse Resp BP Pulse Ox 98.5 F 104 12 144/96 93 08/26/17 11:38 08/26/17 11:38 08/26/17 11:38 08/26/17 11:38 08/26/17 11:38 Internal Medicine: Result - Labs CBC & Chem 7: 08/25/17 02:39 08/26/17 04:21 Labs: BMP 08/26/17 04:21 Sodium 146 H Potassium 4.1 Chloride 105 Carbon Dioxide 32 H BUN 14 Creatinine 1.11 Glucose 114 H Calcium 8.8 - ABG Interpretation ABG results: PT/INR, D-dimer PT 12.0 Seconds (9.4-12.1) 08/21/17 15:01 D-Dimer 1156 ng/mLFEU (0-500) H 08/21/17 15:15 - Attending Attestation I examined this patient and my medical decision-making was reviewed with the Resident Physician on 08/26/17. I agree with the documented findings, disposition and treatment plan as described except to the extent set forth below. Ms Nazario is currently admitted for persistent rapid a fib. She remains moderate to high risk due to potential for worsening cardiac symptoms. She is being loaded with Sotalol currently. Ms. Nazario feels OK. She is concerned that her heart rate continues to be elevated and is worried about what will need to happen in the future if it does not improve. No fever or chills. No cough. No GI issues. No CP or SOB. Exam Alert. Comfortable Heart irreg - still tachy Lungs clear Abd soft No edema Mucus membranes dry I/P 1. Persistent a fib with RVR 2. HTN Further diagnoses and plan as above.
--- NOTE | 2017-08-26 12:29 | Cardiology Progress Note ---
Date of Encounter: 08/26/17 Time of Encounter: 11:30 Assessment and Plan (1) Atrial fibrillation with RVR Current Visit: Yes Status: Acute Per cardiology: -Atrial fibrillation with RVR. Unknown timing of onset. C/o palpitations over the past year. More frequent in the last week. -Average HR per tele overnight noted to be 124, atrial fibrilaltion. -ON cardizem CD 360mg and sotalol 80mg BID. Has received 2 doses of sotalol. -Of note, cardizem was held yesteday for unknown reasons. -TTE - Somewhat technically challenging image quality due to body habitus and presence of atrial fibrillation with elevated heart rate, 110s. Overall, LV systolic appears normal, estimated EF 55%. Moderate increase in LV wall thickness. RV is mildly dilated with normal function. Moderate aortic regurgitation. Mild mitral regurgitation. Moderate tricuspid regurgitation. Mild -moderate pulmonic regurgitation. Mild pulmonary hypertension. -TSH is normal. -CHADS VASC=4. (HTN, CHF, age, gender.) Started on xarelto. First dose yesteday. -ECG on admission with atrial fibrillation, HR 92. Qt 327, Qtc 376. -ECG today with atrial fibrillation. HR 115. Qt 300, Qtc 368. -Will continue with sotalol. -Will continue to monitor. -Patient will need to be inpatient for a total of 6 doses of sotalol. Will check ECG daily. (2) Acute exacerbation of CHF (congestive heart failure) Current Visit: Yes Status: Resolved Per cardiology: -Presented with SOB. Pulmonary edema on CT scan. -BNP 1300. -Net positive fluid balance. Not accurate as no out-put documented. Patient reports increased urine out-put. Weight is down about 7kg. -Stress echocardiogram 12/2016 showed EF 60%. -TTE shows EF 55%. -Likely diastolic dysfunction in the setting of afib with RVR. -Low sodium diet. -Daily weights and strict I&O. -Reports shortness of breath imrpoved today. -ON lasix po. -Weights stable. -Will continue to monitor. Qualifiers: Congestive heart failure type: diastolic Qualified Code(s): I50.33 - Acute on chronic diastolic (congestive) heart failure Discussion w patient/family: The assessment and plan as outlined above was discussed with the patient and family who expressed understanding and agreement. All questions were answered. Thank you for involving us in the care of your patient. Please call with any questions. Discussed and reviewed with . Subjective Principal diagnosis: atrial fibrillation with RVR, distolic dysfunction. Interval history: Patient denies chest pain or jaw pain overnight. Patient reports she feels ok today. Denies palpitations. Family at bedside. Objective Vital Signs, Last 4 Hours Temp Pulse Resp BP Pulse Ox 08/26/17 11:38 98.5 F 104 12 144/96 93 General: Conversant, No Apparent Distress HEENT: Atraumatic, Normocephaly, Mucus Membranes Moist Neck: No JVD, Normal carotid pulses Cardiac: Other (Irregularly, irregular) Lungs: Normal Breath Sounds, No Wheeze, Rales, Rhonchi Neuro: Alert and responsive, No focal deficits noted Abdomen: Soft, Non-Tender Skin: No rashes noted on visualized skin Musculoskeletal: No Chest Wall Tenderness Extremities: No Clubbing, No Cyanosis, No Edema, Normal Pulses Results 08/25/17 02:39 08/26/17 04:21 Lab Results Active Medications Acetaminophen (Tylenol) 650 mg PO Q6HR PRN PRN Reason: Pain Stop: 02/20/18 23:54 Last Admin: 08/23/17 03:16 Dose: 650 mg Aspirin (Aspirin Ec) 81 mg PO DAILY ANGIE Stop: 02/21/18 09:01 Last Admin: 08/26/17 08:22 Dose: 81 mg Atorvastatin Calcium (Lipitor) 10 mg PO HS ANGIE Stop: 02/20/18 21:01 Last Admin: 08/25/17 21:34 Dose: 10 mg Diltiazem HCl (Cardizem Cd) 360 mg PO DAILY ANGIE Stop: 02/23/18 11:01 Last Admin: 08/26/17 08:21 Dose: 360 mg Furosemide (Lasix) 40 mg PO BIDDIURETIC ANGIE Stop: 02/24/18 17:01 Last Admin: 08/26/17 08:21 Dose: 40 mg Lisinopril (Zestril) 40 mg PO DAILY ANGIE Stop: 02/22/18 09:01 Last Admin: 08/26/17 08:22 Dose: 40 mg Morphine Sulfate (Morphine Sulfate) 2 mg IVP Q2H PRN PRN Reason: Chest Pain Stop: 02/20/18 23:32 Naloxone HCl (Narcan) 0.4 mg IVP Q2MIN PRN PRN Reason: Opioid Reversal Stop: 02/20/18 23:35 Omeprazole (Prilosec) 40 mg PO 0730 [facility] Stop: 02/22/18 07:31 Last Admin: 08/26/17 08:21 Dose: 40 mg Ondansetron HCl (Zofran) 4 mg IVP Q8HR PRN PRN Reason: Nausea And Vomiting Stop: 02/20/18 23:35 Last Admin: 08/26/17 08:22 Dose: 4 mg Potassium Chloride (Potassium Chloride) 10 meq PO DAILY [facility] Stop: 02/25/18 09:01 Last Admin: 08/26/17 08:22 Dose: 10 meq Rivaroxaban (Xarelto) 20 mg PO 1700 [facility] Stop: 02/22/18 17:01 Last Admin: 08/25/17 17:15 Dose: 20 mg Sotalol HCl (Betapace) 80 mg PO Q12HR [facility] Stop: 02/24/18 18:01 Last Admin: 08/26/17 05:03 Dose: 80 mg Trazodone HCl (Trazodone) 50 mg PO HS [facility] Stop: 02/20/18 23:46 Last Admin: 08/25/17 21:34 Dose: 50 mg Venlafaxine HCl (Effexor Xr) 150 mg PO DAILY [facility] PRN Reason: Protocol Stop: 02/21/18 09:01 Last Admin: 08/26/17 08:22 Dose: 150 mg Laboratory Tests 08/26/17 04:21 Potassium 4.1 Creatinine 1.11 - Imaging and Cardiology Chest Xray: report reviewed Echo: report reviewed - EKG Interpretation EKG results cardiology: personally reviewed (ECG today with atrial fibrillation , HR 115. Qt 300, Qtc 368.), other (Telemetry reviewed with average HR previous 12 hours noted to be 124, atrial fibrillation. PVCs noted.) Consult Discharge Plan - Plan Additional Instructions: pcp requested Referrals: Gracie Holly MD [Primary Care Provider] - 09/04/17 11:15 am
[2017-08-26] MEDS: *HR* Rivaroxaban 10 MG TABLET PO SCH (17:17)
[2017-08-26] MEDS: traZODone 50 MG TABLET PO SCH (20:48)
[2017-08-27] MEDS: Diltiazem CD (24hr) 180 MG CAPSULE PO SCH (08:26)
[2017-08-27] MEDS: Lisinopril 20 MG TABLET PO SCH (08:26)
[2017-08-27] MEDS: Ondansetron 4 MG/2 ML VIAL IVP PRN (08:26)
[2017-08-27] MEDS: Aspirin Enteric Coated 81 MG Tablet PO SCH (08:27)
[2017-08-27] MEDS: Furosemide 40 MG TABLET PO SCH ×2 (08:27→19:03)
[2017-08-27] MEDS: Venlafaxine XR (24 HR) 150 MG CAP.ER.24H PO SCH (08:27)
--- NOTE | 2017-08-27 12:10 | Cardiology Progress Note ---
Date of Encounter: 08/27/17 Time of Encounter: 11:30 Assessment and Plan (1) Atrial fibrillation with RVR Current Visit: Yes Status: Acute Per cardiology: -Atrial fibrillation with RVR. Unknown timing of onset. C/o palpitations over the past year. More frequent in the last week. -Average HR per tele overnight noted to be 130, atrial fibrilaltion. -ON cardizem CD 360mg and sotalol 80mg BID. Has received 4 doses of sotalol. -TTE - Somewhat technically challenging image quality due to body habitus and presence of atrial fibrillation with elevated heart rate, 110s. Overall, LV systolic appears normal, estimated EF 55%. Moderate increase in LV wall thickness. RV is mildly dilated with normal function. Moderate aortic regurgitation. Mild mitral regurgitation. Moderate tricuspid regurgitation. Mild -moderate pulmonic regurgitation. Mild pulmonary hypertension. -TSH is normal. -CHADS VASC=4. (HTN, CHF, age, gender.) Started on xarelto. First dose yesteday. -ECG on admission with atrial fibrillation, HR 92. Qt 327, Qtc 376. -ECG today with atrial fibrillation. HR 54 Qt 302, Qtc 389. -Per discussion with , will increase sotalol to 120mg BID. -Will continue to monitor. -Can consider EP consult. (2) Acute exacerbation of CHF (congestive heart failure) Current Visit: Yes Status: Resolved Per cardiology: -Presented with SOB. Pulmonary edema on CT scan. -BNP 1300. -Net positive fluid balance. Not accurate as no out-put documented. Patient reports increased urine out-put. Weight is down about 7kg. -Stress echocardiogram 12/2016 showed EF 60%. -TTE shows EF 55%. -Likely diastolic dysfunction in the setting of afib with RVR. -Low sodium diet. -Daily weights and strict I&O. -Reports shortness of breath imrpoved today. -ON lasix po. -Weights stable. -Will continue to monitor. Qualifiers: Congestive heart failure type: diastolic Qualified Code(s): I50.33 - Acute on chronic diastolic (congestive) heart failure Discussion w patient/family: The assessment and plan as outlined above was discussed with the patient and family who expressed understanding and agreement. All questions were answered. Thank you for involving us in the care of your patient. Please call with any questions. Discussed and reviewed with . Subjective Principal diagnosis: atrial fibrillation with RVR, distolic dysfunction. Interval history: Patient reports she feels ok today. Denies palpitations. Objective Vital Signs, Last 4 Hours Temp Pulse Resp BP Pulse Ox 08/27/17 10:25 97.7 F 88 12 111/79 95 General: Conversant, No Apparent Distress HEENT: Atraumatic, Normocephaly, Mucus Membranes Moist Neck: No JVD, Normal carotid pulses Cardiac: Normal S1 and S2, No Murmur, Other (Irregularly, irregular. Tachycardic. ) Lungs: Normal Breath Sounds, No Wheeze, Rales, Rhonchi Neuro: Alert and responsive, No focal deficits noted Abdomen: Soft, Non-Tender Skin: No rashes noted on visualized skin Musculoskeletal: No Chest Wall Tenderness Extremities: No Clubbing, No Cyanosis, No Edema, Normal Pulses Results 08/25/17 02:39 08/26/17 04:21 Active Medications Acetaminophen (Tylenol) 650 mg PO Q6HR PRN PRN Reason: Pain Stop: 02/20/18 23:54 Last Admin: 08/23/17 03:16 Dose: 650 mg Aspirin (Aspirin Ec) 81 mg PO DAILY ANGIE Stop: 02/21/18 09:01 Last Admin: 08/27/17 08:27 Dose: 81 mg Atorvastatin Calcium (Lipitor) 10 mg PO HS ANGIE Stop: 02/20/18 21:01 Last Admin: 08/26/17 20:48 Dose: 10 mg Diltiazem HCl (Cardizem Cd) 360 mg PO DAILY ANGIE Stop: 02/23/18 11:01 Last Admin: 08/27/17 08:26 Dose: 360 mg Furosemide (Lasix) 40 mg PO BIDDIURETIC ANGIE Stop: 02/24/18 17:01 Last Admin: 08/27/17 08:27 Dose: 40 mg Lisinopril (Zestril) 40 mg PO DAILY ANGIE Stop: 02/22/18 09:01 Last Admin: 08/27/17 08:26 Dose: 40 mg Morphine Sulfate (Morphine Sulfate) 2 mg IVP Q2H PRN PRN Reason: Chest Pain Stop: 02/20/18 23:32 Naloxone HCl (Narcan) 0.4 mg IVP Q2MIN PRN PRN Reason: Opioid Reversal Stop: 02/20/18 23:35 Omeprazole (Prilosec) 40 mg PO 0730 [facility] Stop: 02/22/18 07:31 Last Admin: 08/27/17 08:26 Dose: 40 mg Ondansetron HCl (Zofran) 4 mg IVP Q8HR PRN PRN Reason: Nausea And Vomiting Stop: 02/20/18 23:35 Last Admin: 08/27/17 08:26 Dose: 4 mg Potassium Chloride (Potassium Chloride) 10 meq PO DAILY ANGIE Stop: 02/25/18 09:01 Last Admin: 08/27/17 08:26 Dose: 10 meq Rivaroxaban (Xarelto) 20 mg PO 1700 [facility] Stop: 02/22/18 17:01 Last Admin: 08/26/17 17:17 Dose: 20 mg Sotalol HCl (Betapace) 120 mg PO Q12HR ANGIE Stop: 02/26/18 18:01 Trazodone HCl (Trazodone) 50 mg PO HS [facility] Stop: 02/20/18 23:46 Last Admin: 08/26/17 20:48 Dose: 50 mg Venlafaxine HCl (Effexor Xr) 150 mg PO DAILY ANGIE PRN Reason: Protocol Stop: 02/21/18 09:01 Last Admin: 08/27/17 08:27 Dose: 150 mg Laboratory Tests 08/26/17 04:21 Potassium 4.1 Creatinine 1.11 - Imaging and Cardiology Chest Xray: report reviewed Echo: report reviewed - EKG Interpretation EKG results cardiology: personally reviewed (ECG today with atrial fibrillation RVR, HR 154. Qt 302, Qtc 389.), other (Telemetry reviewed with average HR previous 12 hours noted to be 130, atrial fibrillation. PVCs and couplets noted. ) Consult Discharge Plan - Plan Additional Instructions: pcp requested Referrals: Gracie Holly MD [Primary Care Provider] - 09/04/17 11:15 am
--- NOTE | 2017-08-27 12:21 | Internal Med Progress Note ---
<Daryn Kathleen - Last Filed: 08/27/17 12:21> Date of Encounter: 08/27/17 Time of Encounter: 12:19 - Assessment and plan (1) Atrial fibrillation with RVR Current Visit: Yes Status: Acute Assessment and plan: still in afib rvr with rate between 120-150s currently on sotalol, increased dose by cardiology to 120mg continue cardizem and toprol may need ablation if sotalol no successful cardiology recommends EP consult (2) DVT prophylaxis Current Visit: Yes Status: Acute Assessment and plan: on xarelto for afib (3) Morbid obesity with BMI of 50.0-59.9, adult Current Visit: Yes Status: Acute Assessment and plan: patient educated on benefits of exercise and diet (4) HTN (hypertension) Current Visit: Yes Status: Chronic Assessment and plan: BP controlled home clonidine d/c also on lisinopril and cardizem Qualifiers: Hypertension type: essential hypertension Qualified Code(s): I10 - Essential (primary) hypertension (5) HLD (hyperlipidemia) Current Visit: Yes Status: Chronic Assessment and plan: Continue home meds Qualifiers: Hyperlipidemia type: mixed hyperlipidemia Qualified Code(s): E78.2 - Mixed hyperlipidemia (6) Acute exacerbation of CHF (congestive heart failure) Current Visit: Yes Status: Resolved Assessment and plan: 2nd afib rvr resolved euvolemic continue lasix 40 BID BMP in morning: renal function baseline Qualifiers: Congestive heart failure type: diastolic Qualified Code(s): I50.33 - Acute on chronic diastolic (congestive) heart failure - Subjective Interval history: no acute events overnight. Still tachycardic. Denies CP, sob, abdominal pain, LE pain, swelling. - Constitutional Vitals: Temp Pulse Resp BP Pulse Ox 97.7 F 88 12 111/79 95 08/27/17 10:25 08/27/17 10:25 08/27/17 10:25 08/27/17 10:25 08/27/17 10:25 General appearance: Present: cooperative, morbidly obese, pleasant, no acute distress, answers questions appropriately - Respiratory Respiratory exam: Present: CTAB. Absent: accessory muscle use, rales, rhonchi, wheezes - Cardiovascular Cardiovascular exam: Present: irregular rhythm, tachycardia - GI/Abdominal GI/Abdominal exam: Present: normal bowel sounds, soft, no peritoneal signs. Absent: distended, tenderness - Extremities Exam Extremities exam: Present: warm, radial pulses palpable and symmetrical. Absent : calf tenderness, cyanotic, pedal edema - Skin Skin exam: Present: dry, intact Internal Medicine: Result - Labs CBC & Chem 7: 08/25/17 02:39 08/26/17 04:21 - ABG Interpretation ABG results: PT/INR, D-dimer PT 12.0 Seconds (9.4-12.1) 08/21/17 15:01 D-Dimer 1156 ng/mLFEU (0-500) H 08/21/17 15:15 Consult Discharge Plan - Plan Additional Instructions: pcp requested Referrals: Gracie Holly MD [Primary Care Provider] - 09/04/17 11:15 am <Clifford Ellison - Last Filed: 08/27/17 15:56> Date of Encounter: 08/27/17 - Assessment and plan (1) Atrial fibrillation Current Visit: Yes Status: Acute Qualifiers: Atrial fibrillation type: persistent Qualified Code(s): I48.1 - Persistent atrial fibrillation (2) Acute exacerbation of CHF (congestive heart failure) Current Visit: Yes Status: Resolved Qualifiers: Congestive heart failure type: diastolic Qualified Code(s): I50.33 - Acute on chronic diastolic (congestive) heart failure (3) HTN (hypertension) Current Visit: Yes Status: Chronic Qualifiers: Hypertension type: essential hypertension Qualified Code(s): I10 - Essential (primary) hypertension (4) HLD (hyperlipidemia) Current Visit: Yes Status: Chronic Qualifiers: Hyperlipidemia type: mixed hyperlipidemia Qualified Code(s): E78.2 - Mixed hyperlipidemia (5) CKD (chronic kidney disease) stage 3, GFR 30-59 ml/min Current Visit: Yes Status: Chronic (6) Morbid obesity with BMI of 50.0-59.9, adult Current Visit: Yes Status: Acute - Constitutional Vitals: Temp Pulse Resp BP Pulse Ox 97.7 F 88 12 111/79 95 08/27/17 10:25 08/27/17 10:25 08/27/17 10:25 08/27/17 10:25 08/27/17 10:25 Internal Medicine: Result - Labs CBC & Chem 7: 08/25/17 02:39 08/26/17 04:21 - ABG Interpretation ABG results: PT/INR, D-dimer PT 12.0 Seconds (9.4-12.1) 08/21/17 15:01 D-Dimer 1156 ng/mLFEU (0-500) H 08/21/17 15:15 - Attending Attestation I examined this patient and my medical decision-making was reviewed with the Resident Physician on 08/27/17. I agree with the documented findings, disposition and treatment plan as described except to the extent set forth below. Ms Nazario is currently admitted for rapid atrial fibrillation. She is on Sotalol therapy which was just increased. She remains moderate to high risk due to potential for worsening cardiac status. Ms. Nazario remains tachycardic despite multiple different meds. Sotalol dose increased today. She has had some nausea but no chest pain. No fever or chills. No urine symptoms. Exam alert. Comfortable but anxious. Mucus membranes dry Heart irreg and tachy Lungs clear Abd soft and nontender No edema I/P 1. Rapid a fib - Sotalol increased today. Anticipate EP consult if no better tomorrow. Discussed with patient. 2. Nausea - ? etiology. PRN meds. Further diagnoses and plan as above.
[2017-08-27] MEDS ORDERED: Ondansetron 4 MG/2 ML VIAL IVP PRN (13:15)
[2017-08-27] MEDS ORDERED: Metoclopramide 10 MG/2 ML VIAL IVP PRN (17:31)
[2017-08-27] MEDS ORDERED: Bisacodyl 10 MG RECTAL SUPPOSITORY RC PRN (17:33)
--- NOTE | 2017-08-27 18:08 | Electrocardiograph Report ---
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
[2017-08-27 18:51] LABS: Hematocrit 40.9 % (35.3-44.9); Hemoglobin 12.6 g/dL (11.5-15.4); Mean Corpuscular HGB Conc 30.8 g/dL (31.6-35.5); Mean Corpuscular Hemoglobin 27.3 pg (28.0-33.3); Mean Corpuscular Volume 88.7 fL (83.0-100.0); Mean Platelet Volume 11.3 fL (9.4-12.4); Platelet Count 233 K/mcL (140-400); Red Blood Count 4.61 M/mcL (3.82-4.97); Red Cell Distribution Width 13.3 % (11.5-14.5)
[2017-08-27 19:02] LABS: Magnesium 1.6 mg/dL (1.6-2.6); Potassium 3.6 mEq/L (3.5-4.5)
[2017-08-27] MEDS: *HR* Rivaroxaban 10 MG TABLET PO SCH (19:02)
--- NOTE | 2017-08-27 19:32 | Electrocardiograph Report ---
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
[2017-08-27] MEDS ORDERED: 0.9 % Sodium Chloride 500 ML IVC ONE (19:43)
[2017-08-27] MEDS ORDERED: 0.9 % Sodium Chloride 500 ML ONE (21:56)
[2017-08-27] MEDS: traZODone 50 MG TABLET PO SCH (22:01)
[2017-08-28 08:33] LABS: Calcium 8.6 mg/dL (8.6-10.8); Potassium 3.5 mEq/L (3.5-4.5)
[2017-08-28] MEDS: Furosemide 40 MG TABLET PO SCH ×2 (08:45→17:57)
[2017-08-28] MEDS: Venlafaxine XR (24 HR) 150 MG CAP.ER.24H PO SCH (08:45)
[2017-08-28] MEDS: Lisinopril 20 MG TABLET PO SCH (08:45)
[2017-08-28] MEDS: Aspirin Enteric Coated 81 MG Tablet PO SCH (08:45)
[2017-08-28] MEDS: Diltiazem CD (24hr) 180 MG CAPSULE PO SCH (08:46)
--- NOTE | 2017-08-28 08:52 | Cardiology Progress Note ---
Date of Encounter: 08/28/17 Time of Encounter: 08:49 Assessment and Plan (1) Atrial fibrillation with RVR Current Visit: Yes Status: Acute Per cardiology: Atrial fibrillation with RVR. Unknown timing of onset. C/o palpitations over the past year. More frequent in the last week. Converted to NSR last night around 11:00pm. ON cardizem CD 360mg and sotalol 120mg BID. Has received 2 of increased dose sotalol. TTE - Somewhat technically challenging image quality due to body habitus and presence of atrial fibrillation with elevated heart rate, 110s. Overall, LV systolic appears normal, estimated EF 55%. Moderate increase in LV wall thickness. RV is mildly dilated with normal function. Moderate aortic regurgitation. Mild mitral regurgitation. Moderate tricuspid regurgitation. Mild -moderate pulmonic regurgitation. Mild pulmonary hypertension. TSH is normal. CHADS VASC=4. (HTN, CHF, age, gender.) Started on xarelto. ECG on admission with atrial fibrillation, HR 92. Qt 327, Qtc 376. ECG 08/27/17 with atrial fibrillation. HR 54 Qt 302, Qtc 389. ECG 08/28/17, NSR with PAC. Non- specific T wave changes new from baseline EKG from 2012. QTC 447. Continue to monitor today. If no recurrent afib, Ok to d/c tomorrow from cardiology standpoint. (2) Acute exacerbation of CHF (congestive heart failure) Current Visit: Yes Status: Resolved Per cardiology: -Presented with SOB. Pulmonary edema on CT scan. -BNP 1300. -Net positive fluid balance. Not accurate as no out-put documented. Patient reports increased urine out-put. Weight is down about 7kg. -Stress echocardiogram 12/2016 showed EF 60%. -TTE shows EF 55%. -Likely diastolic dysfunction in the setting of afib with RVR. -Low sodium diet. -Daily weights and strict I&O. -SOB and BLE resolved. -Now on oral lasix. -Weights stable. Continue to monitor. Qualifiers: Congestive heart failure type: diastolic Qualified Code(s): I50.33 - Acute on chronic diastolic (congestive) heart failure Discussion w patient/family: The assessment and plan as outlined above was discussed with the patient and/or family members who expressed understanding and agreement. All questions were answered. Thank you for involving us in the care of your patient. Please call with any questions. Subjective Principal diagnosis: atrial fibrillation with RVR, distolic dysfunction. Interval history: Ms. Nazario reports she is doing well. No events overnight. Objective Vital Signs, Last 4 Hours Temp Pulse Resp BP Pulse Ox 08/28/17 08:41 97 08/28/17 07:54 98.6 F 82 18 147/96 97 General: Conversant, No Apparent Distress HEENT: Atraumatic, Normocephaly, Mucus Membranes Moist Neck: No JVD, Normal carotid pulses Cardiac: Reg Rate and Rhythm, Normal S1 and S2, No Murmur, Other (NSR on telemetry) Lungs: Normal Breath Sounds, No Wheeze, Rales, Rhonchi Neuro: Alert and responsive, No focal deficits noted Abdomen: Soft, Non-Tender Skin: No rashes noted on visualized skin Musculoskeletal: No Chest Wall Tenderness Extremities: No Clubbing, No Cyanosis, No Edema, Normal Pulses Results 08/27/17 18:43 08/28/17 07:20 Lab Results 08/27/17 08/27/17 08/28/17 18:43 18:43 07:20 WBC 7.9 Hgb 12.6 Hct 40.9 Plt Count 233 Sodium 143 143 Potassium 3.6 3.5 Chloride 104 104 Carbon Dioxide 28 29 BUN 21 H 16 Creatinine 1.31 H 1.11 Glucose 152 H 113 H Calcium 9.0 8.6 Magnesium 1.6 - Imaging and Cardiology Echo: report reviewed - EKG Interpretation EKG results cardiology: personally reviewed Consult Discharge Plan - Plan Additional Instructions: pcp requested Referrals: Gracie Holly MD [Primary Care Provider] - 09/04/17 11:15 am
--- NOTE | 2017-08-28 17:00 | Internal Med Progress Note ---
<Orlando Gill - Last Filed: 08/28/17 16:58> Date of Encounter: 08/28/17 Time of Encounter: 08:00 - Assessment and plan (1) Atrial fibrillation with RVR Current Visit: Yes Status: Acute Assessment and plan: Atrial fibrillation with RVR, unknown timing of onset. Converted to normal sinus rhythm last night around 11 PM On Cardizem CD 360 mg and sotalol 120 mg twice a day Patient is being managed by cardiology, they recommend discharge tomorrow if the patient remains in normal sinus rhythm Patient will be discharged on Xarelto for anticoagulation (2) Acute exacerbation of CHF (congestive heart failure) Current Visit: Yes Status: Resolved Assessment and plan: 2nd afib rvr resolved euvolemic continue lasix 40 BID BMP in morning: renal function baseline Qualifiers: Congestive heart failure type: diastolic Qualified Code(s): I50.33 - Acute on chronic diastolic (congestive) heart failure (3) Morbid obesity with BMI of 50.0-59.9, adult Current Visit: Yes Status: Acute Assessment and plan: patient educated on benefits of exercise and diet (4) HTN (hypertension) Current Visit: Yes Status: Chronic Assessment and plan: BP controlled home clonidine d/c also on lisinopril and cardizem Qualifiers: Hypertension type: essential hypertension Qualified Code(s): I10 - Essential (primary) hypertension (5) HLD (hyperlipidemia) Current Visit: Yes Status: Chronic Assessment and plan: Continue home meds Qualifiers: Hyperlipidemia type: mixed hyperlipidemia Qualified Code(s): E78.2 - Mixed hyperlipidemia (6) Hypokalemia Current Visit: Yes Status: Acute Assessment and plan: K3.6 and stable Patient remains on 10 mEq potassium chloride daily (7) DVT prophylaxis Current Visit: Yes Status: Acute Assessment and plan: on xarelto for afib - Subjective Interval history: Patient is resting comfortable in bed at the time of exam. She had no acute complaints overnight. She did not experience any palpitations, chest pain, shortness of breath. She says that she feels well. Telemetry does show that the patient did convert to normal sinus rhythm overnight and has remained there since. - Constitutional Vitals: Temp Pulse Resp BP Pulse Ox 98.9 F 81 24 140/98 92 08/28/17 15:50 08/28/17 15:50 08/28/17 15:50 08/28/17 16:21 08/28/17 15:50 General appearance: Present: cooperative, morbidly obese, pleasant, no acute distress, answers questions appropriately - Head Head exam: Present: atraumatic, normocephalic - Eye Eye exam: Present: PERRL, conjuntiva pink, sclera anicteric Pupils: Present: PERRL - Neck Neck exam general surgery: Present: supple, trachea midline. Absent: lymphadenopathy - Respiratory Respiratory exam: Present: CTAB. Absent: accessory muscle use, rales, rhonchi, wheezes - Cardiovascular Cardiovascular exam: Present: RRR, +S1, +S2. Absent: diastolic murmur, gallop, rubs, systolic murmur - GI/Abdominal GI/Abdominal exam: Present: normal bowel sounds, soft, no peritoneal signs. Absent: distended, tenderness - Extremities Exam Extremities exam: Present: warm, radial pulses palpable and symmetrical. Absent : calf tenderness, cyanotic, pedal edema - Neurological Exam Neurological exam: Present: CN II-XII intact, oriented X3, no focal deficits. Absent: pronater drift, facial droop, speech deficit - Skin Skin exam: Present: dry, intact Internal Medicine: Result - Labs CBC & Chem 7: 08/27/17 18:43 08/28/17 07:20 Labs: Short CBC 08/27/17 Range/Units 18:43 WBC 7.9 (4.3-11.1) K/mcL Hgb 12.6 (11.5-15.4) g/dL Hct 40.9 (35.3-44.9) % Plt Count 233 (140-400) K/mcL BMP 08/27/17 08/28/17 18:43 07:20 Sodium 143 143 Potassium 3.6 3.5 Chloride 104 104 Carbon Dioxide 28 29 BUN 21 H 16 Creatinine 1.31 H 1.11 Glucose 152 H 113 H Calcium 9.0 8.6 - ABG Interpretation ABG results: PT/INR, D-dimer PT 12.0 Seconds (9.4-12.1) 08/21/17 15:01 D-Dimer 1156 ng/mLFEU (0-500) H 08/21/17 15:15 Consult Discharge Plan - Plan Additional Instructions: pcp requested Referrals: Gracie Holly MD [Primary Care Provider] - 09/04/17 11:15 am <Clifford Ellison - Last Filed: 08/28/17 17:59> Date of Encounter: 08/28/17 - Assessment and plan (1) Atrial fibrillation Current Visit: Yes Status: Acute Qualifiers: Atrial fibrillation type: persistent Qualified Code(s): I48.1 - Persistent atrial fibrillation (2) Acute exacerbation of CHF (congestive heart failure) Current Visit: Yes Status: Resolved Qualifiers: Congestive heart failure type: diastolic Qualified Code(s): I50.33 - Acute on chronic diastolic (congestive) heart failure (3) HTN (hypertension) Current Visit: Yes Status: Chronic Qualifiers: Hypertension type: essential hypertension Qualified Code(s): I10 - Essential (primary) hypertension (4) HLD (hyperlipidemia) Current Visit: Yes Status: Chronic Qualifiers: Hyperlipidemia type: mixed hyperlipidemia Qualified Code(s): E78.2 - Mixed hyperlipidemia (5) CKD (chronic kidney disease) stage 3, GFR 30-59 ml/min Current Visit: Yes Status: Chronic (6) Morbid obesity with BMI of 50.0-59.9, adult Current Visit: Yes Status: Acute - Constitutional Vitals: Temp Pulse Resp BP Pulse Ox 98.9 F 81 24 140/98 92 08/28/17 15:50 08/28/17 15:50 08/28/17 15:50 08/28/17 16:21 08/28/17 15:50 Internal Medicine: Result - Labs CBC & Chem 7: 08/27/17 18:43 08/28/17 07:20 Labs: Short CBC 08/27/17 Range/Units 18:43 WBC 7.9 (4.3-11.1) K/mcL Hgb 12.6 (11.5-15.4) g/dL Hct 40.9 (35.3-44.9) % Plt Count 233 (140-400) K/mcL BMP 08/27/17 08/28/17 18:43 07:20 Sodium 143 143 Potassium 3.6 3.5 Chloride 104 104 Carbon Dioxide 28 29 BUN 21 H 16 Creatinine 1.31 H 1.11 Glucose 152 H 113 H Calcium 9.0 8.6 - ABG Interpretation ABG results: PT/INR, D-dimer PT 12.0 Seconds (9.4-12.1) 08/21/17 15:01 D-Dimer 1156 ng/mLFEU (0-500) H 08/21/17 15:15 - Attending Attestation I examined this patient and my medical decision-making was reviewed with the Resident Physician on 08/28/17. I agree with the documented findings, disposition and treatment plan as described except to the extent set forth below. Ms Nazario is currently admitted for rapid a fib. She converted to NSR last night. She is moderate to high risk due to potential for worsening cardiac status and risk of med complication. Ms Nazario feels OK at this time. No CP or SOB. Still some nausea. No fever or chills. Tolerating meds Exam Alert. Comfortable Mucus membranes moist. Heart reg No wheeze Abd soft I/P 1. Persistent a fib - now in NSR 2. Vomiting improving. Further diagnoses and plan as above. Anticipate d/c tomorrow.
--- NOTE | 2017-08-28 17:13 | Electrocardiograph Report ---
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
[2017-08-28] MEDS: *HR* Rivaroxaban 10 MG TABLET PO SCH (17:57)
[2017-08-28] MEDS: traZODone 50 MG TABLET PO SCH (20:03)
[2017-08-29 06:51] VITALS: BP 153/101
[2017-08-29] MEDS ORDERED: hydrALAZINE 10 MG TABLET PO SCH (09:00)
[2017-08-29] MEDS ORDERED: Diltiazem CD (24hr) 180 MG CAPSULE PO SCH (09:45)
[2017-08-29] MEDS: Venlafaxine XR (24 HR) 150 MG CAP.ER.24H PO SCH (09:47)
[2017-08-29] MEDS: Furosemide 40 MG TABLET PO SCH (09:47)
[2017-08-29] MEDS: Aspirin Enteric Coated 81 MG Tablet PO SCH (09:47)
[2017-08-29] MEDS: Lisinopril 20 MG TABLET PO SCH (09:47)
--- NOTE | 2017-08-29 09:49 | Cardiology Progress Note ---
Date of Encounter: 08/29/17 Time of Encounter: 09:44 Assessment and Plan (1) Atrial fibrillation with RVR Current Visit: Yes Status: Acute Per cardiology: Atrial fibrillation with RVR. Unknown timing of onset. C/o palpitations over the past year. More frequent last week. Converted to NSR 08/27/17 at 11:00pm. Remains NSR. ON cardizem CD 360mg and sotalol 120mg BID. Sotalol increased to 120 mg BID 08/27. She received 4 total of increased dose sotalol. (9 doses of sotalol total. ) TTE - Somewhat technically challenging image quality due to body habitus and presence of atrial fibrillation with elevated heart rate, 110s. Overall, LV systolic appears normal, estimated EF 55%. Moderate increase in LV wall thickness. RV is mildly dilated with normal function. Moderate aortic regurgitation. Mild mitral regurgitation. Moderate tricuspid regurgitation. Mild -moderate pulmonic regurgitation. Mild pulmonary hypertension. TSH is normal. CHADS VASC=4. (HTN, CHF, age, gender.) Started on xarelto. ECG on admission with atrial fibrillation, HR 92. Qt 327, Qtc 376. ECG 08/27/17 with atrial fibrillation. HR 54 Qt 302, Qtc 389. ECG 08/28/17, NSR with PAC. Non- specific T wave changes new from baseline EKG from 2012. QTC 447. ECG today- NSR, HR 73, QT 406/432. Telemetry review shows avg HR 73 bpm. Lowest HR seen in telemetry was 68 bpm. HR documented as 50 bpm was noise. Initially had nausea on sotalol. Now resolved. She is ambulating in her room without difficulty. Ok for discharge home today on current dose of medication. Continue sotalol, cardizem, and xarelto. (2) Acute exacerbation of CHF (congestive heart failure) Current Visit: Yes Status: Resolved Per cardiology: -Presented with SOB. Pulmonary edema on CT scan. -BNP 1300. -Net positive fluid balance. Not accurate as no out-put documented. Patient reports increased urine out-put. Weight is down about 7kg. -Stress echocardiogram 12/2016 showed EF 60%. -TTE shows EF 55%. -Likely diastolic dysfunction in the setting of afib with RVR. -Low sodium diet. -SOB and BLE resolved. -Now on oral lasix. -Weights stable. Continue oral lasix at discharge. Qualifiers: Congestive heart failure type: diastolic Qualified Code(s): I50.33 - Acute on chronic diastolic (congestive) heart failure (3) HTN (hypertension) Current Visit: Yes Status: Chronic Qualifiers: Qualified Code(s): I10 - Essential (primary) hypertension Discussion w patient/family: B/p 150/100. On multiple antihypertensives. Renal US attempted but was inconclusive. Unable to see renal arteries. Continue lisinopril, cardizem, and lasix. Add hydralizine. Subjective Principal diagnosis: atrial fibrillation with RVR, distolic dysfunction. Interval history: Ms. Nazario reports she is doing well. No events overnight. She c/o nausea yesterday that is now resolved. Reported to have HR in 50's this morning by primary team. Objective Vital Signs, Last 4 Hours Temp Pulse Resp BP Pulse Ox 08/29/17 06:50 98.1 F 86 16 153/101 97 General: Conversant, No Apparent Distress HEENT: Atraumatic, Normocephaly, Mucus Membranes Moist Neck: No JVD, Normal carotid pulses Cardiac: Reg Rate and Rhythm, Normal S1 and S2, No Murmur Lungs: Normal Breath Sounds, No Wheeze, Rales, Rhonchi Neuro: Alert and responsive, No focal deficits noted Abdomen: Soft, Non-Tender Skin: No rashes noted on visualized skin Musculoskeletal: No Chest Wall Tenderness Extremities: No Clubbing, No Cyanosis, No Edema, Normal Pulses Results 08/27/17 18:43 08/28/17 07:20 - EKG Interpretation EKG results cardiology: personally reviewed Consult Discharge Plan - Plan Additional Instructions: pcp requested Referrals: Gracie Holly MD [Primary Care Provider] - 09/04/17 11:15 am
--- NOTE | 2017-08-29 09:51 | Discharge Summary ---
Addendum entered and electronically signed by Orlando Gill DO 08/29/17 11: 20: Addendum to med rec: Lisinopril is 40mg daily, which is a change from 20mg BID. Patient is alerted and understands. Original Note: <Orlando Gill - Last Filed: 08/29/17 11:00> Date of Encounter: 08/29/17 Time of Encounter: 09:20 - Discharge Diagnosis (1) Atrial fibrillation with RVR Priority: Primary Status: Acute Comments: Atrial fibrillation with RVR, resolved The patient has converted to normal sinus rhythm and stayed in normal sinus rhythm for 24 hour We will discharge the patient on sotalol, Cardizem, and other blood pressure medications CHADSVASC Score equals 4, patient will be on Zarontin for anticoagulation She will require close follow-up with both primary care and cardiology (2) Acute exacerbation of CHF (congestive heart failure) Priority: Secondary Status: Resolved Comments: Congestive heart failure, resolved BNP on admission 1300, and positive fluid balance however and accurate due to lack of documentation of output, weight is down 7 kg Echocardiogram demonstrates left ventricular ejection fraction 55% Patient is on appropriate treatment plan including low sodium diet, beta don , aspirin, statin, JILLIAN inhibitor. Patient will continue oral Lasix at home and follow closely with primary care and cardiology Qualifiers: Congestive heart failure type: diastolic Qualified Code(s): I50.33 - Acute on chronic diastolic (congestive) heart failure (3) Morbid obesity with BMI of 50.0-59.9, adult Priority: Secondary Status: Acute (4) HTN (hypertension) Priority: Secondary Status: Chronic Comments: Patient's blood pressure has been difficult to manage in conjunction with her heart rate At time of discharge we will continue sotalol, Cardizem, lisinopril, lasix, start hydralazine We will discontinue amlodipine, clonidine, metoprolol Qualifiers: Hypertension type: essential hypertension Qualified Code(s): I10 - Essential (primary) hypertension (5) HLD (hyperlipidemia) Priority: Secondary Status: Chronic Comments: Patient is on oral statin Qualifiers: Hyperlipidemia type: mixed hyperlipidemia Qualified Code(s): E78.2 - Mixed hyperlipidemia (6) Hypokalemia Priority: Secondary Status: Resolved Comments: Serum potassium has returned to normal (7) DVT prophylaxis Priority: Secondary Status: Resolved - Discharge Medications Prescriptions: hydrALAZINE [HydrALAZINE] 10 mg PO Q6HR #120 tablet Ondansetron ODT [Zofran ODT] 4 mg SL Q6HR PRN #20 tab.rapdis PRN Reason: Nausea Diltiazem CD (24hr) [Cardizem CD] 360 mg PO DAILY 30 Days #60 cap.er.24h Sotalol HCl [Betapace] 120 mg PO BID #60 tablet Home Medications: Atorvastatin [Lipitor] 10 mg PO HS 08/21/17 [History] Furosemide [Lasix] 40 mg PO DAILY 08/21/17 [History] Lisinopril [Zestril] 40 mg PO DAILY 08/21/17 [History] Omeprazole [PriLOSEC] 40 mg PO DAILY 08/21/17 [History] Potassium Chloride [Klor-Con 10] 10 meq PO DAILY 08/21/17 [History] Venlafaxine HCl [Venlafaxine HCl ER] 150 mg PO DAILY 08/21/17 [History] traZODone [TraZODone] 50 mg PO HS 08/21/17 [History] Aspirin Enteric Coated [Aspirin EC] 81 mg PO DAILY tablet. 08/29/17 [Rx] Diltiazem CD (24hr) [Cardizem CD] 360 mg PO DAILY 30 Days #60 cap.er.24h [Rx] Ondansetron ODT [Zofran ODT] 4 mg SL Q6HR PRN #20 tab.rapdis 08/29/17 [Rx] Rivaroxaban [Xarelto] 20 mg PO 1700 tablet 08/29/17 [Rx] Sotalol HCl [Betapace] 120 mg PO BID #60 tablet 08/29/17 [Rx] hydrALAZINE [HydrALAZINE] 10 mg PO Q6HR #120 tablet 08/29/17 [Rx] Allergies/Adverse Reactions: 3 Allergy/AdvReac Type Severity Reaction Status Date / Time No Known Allergies Allergy Unverified 12/21/16 11:32 Procedures/tests Complete & Pending: Procedures Performed prior 72 hours Category Date Time Status ECG 12 lead ECG [ECG] AM 0600 Y 08/27/17 06:00 Completed ECG 12 lead ECG [ECG] AM 0600 Y 08/28/17 06:00 Ordered ECG 12 lead ECG [ECG] AM 0600 Y 08/29/17 06:00 Completed ECG 12 lead ECG [ECG] AM 0600 Y 08/30/17 06:00 Ordered ECG 12 lead ECG [ECG] Routine Y 08/27/17 19:03 Completed Date of admission: 08/21/17 23:33 Primary care physician: Gracie Holly Consults: 08/23/17 10:18 Consult to Cardiology [CONS] Routine Comment: Consulting Provider: Cardiology Isabelle Reason for Consult: Afib RVR Time Notified: 10:18 Call Completed: Yes Discharging clinician: Orlando Gill Anticipated date of discharge: 08/29/17 - Patient Status Disposition: Home, Self-Care Condition: Good Overall status at discharge: patient is back to baseline - Discharge Instructions Instructions: Diltiazem (By mouth), Hydralazine (By mouth), Ondansetron (By mouth), Sotalol (By mouth), Heart Failure (DC), Atrial Fibrillation (DC), Chronic Hypertension (DC) Follow Up With: Gracie Holly MD [Primary Care Provider] - 09/04/17 11:15 am Tyrone Barnard CNP [Advanced Practice Nurse] - (i requested an appointment office should call patient at home with appointment time) Additional Instructions: pcp requested Follow up with PCP, and with cardiology. Patient has many changed medications. She should continue: Lisinopril 40mg PO daily Sotalol 120mg PO BID Diltiazem 360mg PO daily Hydralazine 10mg PO QID Discontinue: Amlodipine Metoprolol Clonidine - Diet and Activity Activity: increase activity as tolerated Diet: low salt diet Hospital course: Ms. Nazario is a 76 year old female with a history of A. fib, CHF, hypertension , hyperlipidemia, GERD, morbid obesity who presented to the ER with chief complaint of shortness of breath, chest pains, leg edema which had been getting worse for the past 3 days prior to admission. Symptoms have been present for the past 2 weeks including shortness of breath with exertion that is worsening, and associated palpitations and diaphoresis which is also worsening. She describes constant left-sided chest pain and pressure with a brick sitting on her chest. In the ER she was found by EKG to have A. fib with RVR and was started on a Cardizem drip. BNP was also measured to be 1385, and the patient had elevated d-dimer but bilateral leg ultrasound was negative for DVT and CTA of the chest demonstrated no pulmonary embolus. Troponins were also trended and found to be negative. The patient was admitted to the hospital to establish rate control over her atrial fib with rapid ventricular response. He remained on Cardizem drip for the majority of her stay which was unable to rate control her properly. Metoprolol was adjusted. Cardiology was consultation for management of complex A. fib w/ RVR, they recommended starting sotalol. The patient did have one event of shortness of breath, nausea and vomiting, and diaphoresis on setting suddenly while having a bowel movement. Troponins were trended at this time an EKG was run to show no acute cardiopulmonary process. She was kept in the hospital for observation during the first 6 doses of sotalol , and then increased again and held overnight and on hospital day 7 she spontaneously converted to normal sinus rhythm. She did still have some hypertension so hydralazine was added. The patient is now stable for discharge and optimal medical management of her CHF and A. fib. - Time Spent with Patient Total time spent providing and/or coordinating discharge services: - Constitutional Vitals: Temp Pulse Resp BP Pulse Ox 98.1 F 86 16 153/101 97 08/29/17 06:50 08/29/17 06:50 08/29/17 06:50 08/29/17 06:50 08/29/17 06:50 General appearance: Present: cooperative, morbidly obese, pleasant, no acute distress, answers questions appropriately Exam: - Head Head exam: Present: atraumatic, normocephalic - Eye Eye exam: Present: PERRL, conjuntiva pink, sclera anicteric Pupils: Present: PERRL - Neck Neck exam general surgery: Present: supple, trachea midline. Absent: lymphadenopathy - Respiratory Respiratory exam: Present: CTAB. Absent: accessory muscle use, rales, rhonchi, wheezes - Cardiovascular Cardiovascular exam: Present: RRR, +S1, +S2. Absent: diastolic murmur, gallop, rubs, systolic murmur - GI/Abdominal GI/Abdominal exam: Present: normal bowel sounds, soft, no peritoneal signs. Absent: distended, tenderness - Extremities Exam Extremities exam: Present: warm, radial pulses palpable and symmetrical. Absent : calf tenderness, cyanotic, pedal edema - Neurological Exam Neurological exam: Present: CN II-XII intact, oriented X3, no focal deficits. Absent: pronater drift, facial droop, speech deficit - Skin Skin exam: Present: dry, intact <Clifford Ellison - Last Filed: 08/29/17 17:29> Date of Encounter: 08/29/17 - Discharge Diagnosis (1) Atrial fibrillation Priority: Primary Status: Acute Qualifiers: Atrial fibrillation type: persistent Qualified Code(s): I48.1 - Persistent atrial fibrillation (2) Acute exacerbation of CHF (congestive heart failure) Status: Resolved Qualifiers: Congestive heart failure type: diastolic Qualified Code(s): I50.33 - Acute on chronic diastolic (congestive) heart failure (3) HTN (hypertension) Status: Chronic Qualifiers: Hypertension type: essential hypertension Qualified Code(s): I10 - Essential (primary) hypertension (4) HLD (hyperlipidemia) Status: Chronic Qualifiers: Hyperlipidemia type: mixed hyperlipidemia Qualified Code(s): E78.2 - Mixed hyperlipidemia (5) CKD (chronic kidney disease) stage 3, GFR 30-59 ml/min Priority: Secondary Status: Chronic (6) Morbid obesity with BMI of 50.0-59.9, adult Status: Acute Procedures/tests Complete & Pending: Procedures Performed prior 72 hours Category Date Time Status ECG 12 lead ECG [ECG] AM 0600 Y 08/27/17 06:00 Completed ECG 12 lead ECG [ECG] AM 0600 Y 08/28/17 06:00 Ordered ECG 12 lead ECG [ECG] AM 0600 Y 08/29/17 06:00 Completed ECG 12 lead ECG [ECG] Routine Y 08/27/17 19:03 Completed Date of admission: 08/21/17 23:33 Primary care physician: Gracie Holly Consults: 08/23/17 10:18 Consult to Cardiology [CONS] Routine Comment: Consulting Provider: Cardiology Isabelle Reason for Consult: Afib RVR Time Notified: 10:18 Call Completed: Yes Hospital course: Ms. Nazario is a 76 year old female - Time Spent with Patient Total time spent providing and/or coordinating discharge services: 40min - Constitutional Vitals: Temp Pulse Resp BP Pulse Ox 98.1 F 86 16 153/101 97 08/29/17 06:50 08/29/17 06:50 08/29/17 06:50 08/29/17 06:50 08/29/17 09:30 - Attending Attestation I examined this patient and my medical decision-making was reviewed with the Resident Physician on 08/29/17. I agree with the documented findings, disposition and treatment plan as described except to the extent set forth below. Ms Nazario has been admitted for acute exac CHF associated with rapid atrial fibrillation. She has converted to NSR. She is afebrile with stable vitals. She still has some nausea but is better now. She is ready to go home at this time. Exam Alert. Comfortable Heart reg Lungs no wheeze Plan D/C home today Follow up with PCP and cardiology. Refused flu vaccine
--- NOTE | 2017-08-29 17:46 | Electrocardiograph Report ---
[place] [id number] Test Date: 2017-08-29 Pat Name: Marisela Nazario Department: 111 Room: 2NE18 Gender: F [employer]gage [employer]: [facility] : 1940 Requested By: Suzy Pedersen Order Number: [id number] Reading MD: Ashly Colunga Measurements Intervals [place] Rate: 73 P: 31 [place]: 176 QRS: -43 QRSD: 109 T: -37 QT: 406 QTc: 432 Interpretive Statements SINUS RHYTHM MARKED LEFT AXIS DEVIATION LEFT VENTRICULAR HYPERTROPHY AND ST-T CHANGE Electronically Signed On 08-29-2017 17:45:07 EDT by Ashly Colunga
== END 2017-08-29 11:40 | disposition home or self-care (01) | DRG 308 ==
LOC: 2NENU 13:00 → EMEROO 13:00 → 2NENU 21:54 → SUATTDRO 23:33
PROVIDERS: ADMIT Nurse Practitioner; ATTEND Internal Medicine

== ENCOUNTER 2020-08-19 19:26 | Observation (INO) ==
[2020-08-19] MEDS ORDERED: 0.9 % Sodium Chloride 1,000 ML IVC ONE (19:47)
[2020-08-19] MEDS ORDERED: Ondansetron 4 MG/2 ML VIAL IVP ONE (19:47)
[2020-08-19 20:06] LABS: Basophils # 0.1 K/mcL (0.0-0.2); Eosinophils # 0.1 K/mcL (0.0-0.6); Eosinophils % 1.4 %; Immature Granulocytes % 0.7 % (0-4); Lymphocytes # 1.3 K/mcL (0.6-4.6); Lymphocytes % 22.9 %; Mean Corpuscular HGB Conc 31.6 g/dL (31.6-35.5); Mean Corpuscular Hemoglobin 29.7 pg (28.0-33.3); Mean Corpuscular Volume 94.1 fL (83.0-100.0); Mean Platelet Volume 10.5 fL (9.4-12.4); Monocytes # 0.5 K/mcL (0.0-1.3); Monocytes % 8.9 %; Neutrophils # 3.8 K/mcL (1.6-8.9); Platelet Count 218 K/mcL (140-400); Red Blood Count 4.04 M/mcL (3.82-4.97); Red Cell Distribution Width 13.4 % (11.5-14.5); Segmented Neutrophils % 65.1 %; White Blood Count 5.9 K/mcL (4.3-11.1)
[2020-08-19 20:24] LABS: Albumin 3.8 g/dL (3.5-5.7); Albumin/Globulin Ratio 1.7 (1.1-2.2); Bilirubin,Direct 0.1 mg/dL (0.0-0.2); Bilirubin,Indirect 0.4 mg/dL (0.0-1.0); Bilirubin,Total 0.5 mg/dL (0.3-1.0); Globulin 2.3 g/dL (2.4-3.5); Potassium 4.4 mEq/L (3.5-5.1); Total Protein 6.1 g/dL (6.4-8.9)
[2020-08-19] MEDS ORDERED: *HR* FentaNYL (PF) 100 MCG/2 ML VIAL IVP ONE (21:50)
[2020-08-19] MEDS ORDERED: Ondansetron 4 MG/2 ML VIAL IVP PRN ×2 (22:05→23:52)
[2020-08-19] MEDS ORDERED: Ondansetron 4 MG/2 ML VIAL ONE (22:07)
[2020-08-19 22:25] LABS: Bacteria,Urine Few per hpf (None-Few); Bilirubin,Urine Negative (Negative); Blood,Urine Negative (Negative); Clarity,Urine Clear (Clear); Color,Urine Light-Yellow (Yellow); Glucose,Urine (UA) Normal (Normal); Hyaline Casts,Urine Few per lpf (None Seen); Ketones,Urine Negative (Negative); Leukocyte Esterase,Urine Large (Negative); Mucus,Urine Few per lpf (None-Few); Nitrite,Urine Negative (Negative); PH,Urine 6.5 pH Units (5.0-8.0); Protein,Urine Trace mg/dL (Neg-Trace); RBC,Urine 0-3 per hpf (0-3); Renal Epithelial Cells,Urine Few per hpf (None-Few); Specific Gravity,Urine 1.021 (1.010-1.025); Squamous Epithelial Cell,Urine Few per hpf (None-Few); Transitional Epi Cells,Urine Few per hpf (None-Few); Urobilinogen,Urine Normal (Normal); WBC,Urine 30-50 per hpf (0-3)
[2020-08-19] MEDS ORDERED: 0.9 % Sodium Chloride 1,000 ML IVC SCH (23:45)
[2020-08-19] MEDS ORDERED: Naloxone 0.4 MG/ML INJ IVP PRN (23:52)
[2020-08-19] MEDS ORDERED: *HR* Promethazine 25 MG/ML VIAL IVP PRN (23:52)
[2020-08-20 02:21] LABS: Hematocrit 34.3 % (35.3-44.9); Hemoglobin 10.7 g/dL (11.5-15.4); Mean Corpuscular HGB Conc 31.2 g/dL (31.6-35.5); Mean Corpuscular Hemoglobin 30.2 pg (28.0-33.3); Mean Corpuscular Volume 96.9 fL (83.0-100.0); Mean Platelet Volume 10.9 fL (9.4-12.4); Platelet Count 196 K/mcL (140-400); Red Blood Count 3.54 M/mcL (3.82-4.97); Red Cell Distribution Width 13.4 % (11.5-14.5)
[2020-08-20 02:45] LABS: Calcium 8.1 mg/dL (8.6-10.3); Potassium 4.2 mEq/L (3.5-5.1)
[2020-08-20] MEDS ORDERED: lisinopriL 20 MG TABLET PO SCH (10:15)
[2020-08-20] MEDS ORDERED: *HR* Amiodarone 200 MG TABLET PO SCH (10:15)
[2020-08-20 11:37] VITALS: BP 142/80
[2020-08-20] MEDS ORDERED: DilTIAZem CD (24hr) 180 MG CAP.ER.24H PO SCH (11:45)
[2020-08-20] MEDS ORDERED: Aspirin Enteric Coated 81 MG Tablet PO SCH (11:45)
[2020-08-20] MEDS ORDERED: *HR* Rivaroxaban 15 MG TABLET PO SCH (11:45)
[2020-08-20] MEDS ORDERED: Venlafaxine XR (24 HR) 75 MG CAP.ER.24H PO SCH (11:45)
[2020-08-21] MEDS ORDERED: Famotidine 20 MG TABLET PO SCH (09:00)
[2020-08-21] MEDS ORDERED: Furosemide 40 MG TABLET PO SCH (09:00)
== END 2020-08-20 14:33 | disposition home or self-care (01) ==
LOC: EMEROOARM 19:26 → 3BNU 19:26 → SUATTDRO 23:04 → 3BNU 23:34
PROVIDERS: ADMIT Student in an Organized Health Care Education/Training Program; ATTEND Internal Medicine

== ENCOUNTER 2022-06-24 11:22 | Inpatient (IN) ==
[2022-06-24] MEDS ORDERED: Ondansetron 4 MG/2 ML VIAL IVP ONE (11:32)
[2022-06-24] MEDS ORDERED: 0.9 % Sodium Chloride 1,000 ML IVC ONE ×2 (11:32→13:50)
[2022-06-24] MEDS ORDERED: Morphine Sulfate 2 MG/ML SYRINGE IVP ONE (11:32)
[2022-06-24 12:10] LABS: Basophils # 0.1 K/mcL (0.0-0.2); Basophils % 0.7 %; Eosinophils # 0.3 K/mcL (0.0-0.6); Eosinophils % 2.3 %; Hematocrit 37.2 % (35.3-44.9); Hemoglobin 11.3 g/dL (11.5-15.4); Immature Granulocytes % 2.7 % (0-4); Lymphocytes # 2.6 K/mcL (0.6-4.6); Lymphocytes % 20.7 %; Mean Corpuscular HGB Conc 30.4 g/dL (31.6-35.5); Mean Corpuscular Hemoglobin 29.7 pg (28.0-33.3); Mean Corpuscular Volume 97.6 fL (83.0-100.0); Mean Platelet Volume 11.1 fL (9.4-12.4); Monocytes # 0.5 K/mcL (0.0-1.3); Monocytes % 4.2 %; Neutrophils # 8.9 K/mcL (1.6-8.9); Platelet Count 382 K/mcL (140-400); Red Blood Count 3.81 M/mcL (3.82-4.97); Red Cell Distribution Width 13.3 % (11.5-14.5); Segmented Neutrophils % 69.4 %; White Blood Count 12.8 K/mcL (4.3-11.1)
[2022-06-24 12:32] LABS: Alanine Aminotransferase 9 Units/L (7-52); Albumin 3.5 g/dL (3.5-5.7); Albumin/Globulin Ratio 1.5 (1.1-2.2); Alkaline Phosphatase 79 Units/L (34-104); Aspartate Amino Transferase 13 Units/L (13-39); BUN/Creatinine Ratio 18 (6-26); Bilirubin,Direct 0.4 mg/dL (0.0-0.2); Bilirubin,Indirect 1.2 mg/dL (0.0-1.0); Bilirubin,Total 1.6 mg/dL (0.3-1.0); Blood Urea Nitrogen 35 mg/dL (8-23); Calcium 8.4 mg/dL (8.6-10.3); Carbon Dioxide 16 mEq/L (23-29); Chloride 107 mEq/L (98-107); Globulin 2.3 g/dL (2.4-3.5); Glucose 238 mg/dL (70-105); Lipase 46 Units/L (11-82); Osmolality,Calculated 300 (280-300); Potassium 4.3 mEq/L (3.5-5.1); Sodium 137 mEq/L (136-145); Total Protein 5.8 g/dL (6.4-8.9); Troponin I < 0.03 ng/mL (< 0.04); eGFR For African Americans 31 (> 60); eGFR For Non-African Americans 25 (> 60)
[2022-06-24 13:42] LABS: Bacteria,Urine Few per hpf (None-Few); Bilirubin,Urine Small (Negative); Blood,Urine Trace (Negative); Clarity,Urine Ex.Turbid (Clear); Color,Urine Dark-Orange (Yellow); Glucose,Urine (UA) Normal (Normal); Hyaline Casts,Urine Many per lpf (None Seen); Ketones,Urine Negative (Negative); Leukocyte Esterase,Urine Small (Negative); Mucus,Urine Few per lpf (None-Few); Nitrite,Urine Negative (Negative); PH,Urine 5.5 pH Units (5.0-8.0); Protein,Urine 100 mg/dL (Neg-Trace); Specific Gravity,Urine 1.023 (1.010-1.025); Squamous Epithelial Cell,Urine Few per hpf (None-Few); Urobilinogen,Urine >=8.0 mg/dL (Normal)
[2022-06-24] MEDS ORDERED: Naloxone 0.4 MG/ML INJ IVP PRN (14:22)
[2022-06-24] MEDS ORDERED: *HR* Heparin 5,000 UNIT/ML VIAL IVP PRN ×2 (14:31)
[2022-06-24] MEDS ORDERED: *HR* Heparin 5,000 UNIT/ML VIAL IVP ONE (14:31)
[2022-06-24] MEDS ORDERED: Heparin 25,000UNIT/250ML 1/2NS 25,000 UNIT/250 ML IV.SOLN IVC SCH (14:45)
[2022-06-24] MEDS ORDERED: D5% in Water 1,000 ML IVC PRN (14:49)
[2022-06-24] MEDS ORDERED: Dextrose Gel 15 GM/37.5 ML TUBE PO PRN ×2 (14:49)
[2022-06-24] MEDS ORDERED: *HR* Dextrose 50 % in Water (Syg) 50 ML SYRINGE IVP PRN (14:49)
[2022-06-24] MEDS: Piperacillin/Tazobactam 3.375 GM in 0.9 % Sodium Chloride Mini Bag 100 ML IVPB SCH (17:38)
[2022-06-24] MEDS: 0.9 % Sodium Chloride 1,000 ML IVC SCH (17:39)
[2022-06-24 18:40] LABS: INR 1.7; Prothrombin Time 19.1 Seconds (9.4-12.1)
[2022-06-24 18:42] LABS: Activated Partial Thrombo Time 33.6 Seconds (26.0-36.0)
[2022-06-24 18:46] LABS: Heparin anti-factor XA UFH 1.75 IU/mL (0.30-0.70)
[2022-06-24 19:12] LABS: Magnesium 2.8 mg/dL (1.6-2.6); Thyroid Stimulating Hormone 1.501 mcIU/mL (0.340-5.600); Troponin I < 0.03 ng/mL (< 0.04)
[2022-06-24] MEDS: Heparin 25,000UNIT/250ML 1/2NS 25,000 UNIT/250 ML IV.SOLN IVC SCH (19:25)
[2022-06-24] MEDS: Insulin LISPRO 300 UNITS/3 ML VIAL SUBQ SCH (19:54)
[2022-06-24 20:16] LABS: Estimated Average Glucose 114 mg/dl; Hemoglobin A1C 5.6 %
[2022-06-24 21:08] LABS: Hematocrit 36.8 % (35.3-44.9); Hemoglobin 11.2 g/dL (11.5-15.4); Mean Corpuscular HGB Conc 30.4 g/dL (31.6-35.5); Mean Corpuscular Volume 101.9 fL (83.0-100.0); Platelet Count 314 K/mcL (140-400); Red Blood Count 3.61 M/mcL (3.82-4.97); Red Cell Distribution Width 13.4 % (11.5-14.5); White Blood Count 24.4 K/mcL (4.3-11.1)
[2022-06-25 01:01] LABS: Hematocrit 35.8 % (35.3-44.9); Mean Corpuscular HGB Conc 30.7 g/dL (31.6-35.5); Mean Corpuscular Hemoglobin 30.7 pg (28.0-33.3); Mean Platelet Volume 10.9 fL (9.4-12.4); Platelet Count 346 K/mcL (140-400); Red Blood Count 3.58 M/mcL (3.82-4.97); Red Cell Distribution Width 13.6 % (11.5-14.5); White Blood Count 23.8 K/mcL (4.3-11.1)
[2022-06-25] MEDS: Insulin LISPRO 300 UNITS/3 ML VIAL SUBQ SCH ×4 (01:08→18:03)
[2022-06-25] MEDS: Piperacillin/Tazobactam 3.375 GM in 0.9 % Sodium Chloride Mini Bag 100 ML IVPB SCH ×4 (01:14→23:57)
[2022-06-25 01:24] LABS: Albumin 3.3 g/dL (3.5-5.7); Albumin/Globulin Ratio 1.5 (1.1-2.2); Bilirubin,Total 1.6 mg/dL (0.3-1.0); Calcium 7.4 mg/dL (8.6-10.3); Globulin 2.2 g/dL (2.4-3.5); Potassium 5.5 mEq/L (3.5-5.1); Total Protein 5.5 g/dL (6.4-8.9)
[2022-06-25 01:59] LABS: Monocytes # 1.4 K/mcL (0.0-1.3); Neutrophils # 21.4 K/mcL (1.6-8.9); Platelet Estimate Normal (Normal)
[2022-06-25] MEDS: 0.9 % Sodium Chloride 1,000 ML IVC SCH ×5 (04:07→23:58)
[2022-06-25] MEDS ORDERED: Calcium Gluconate 1gm/50mL 1 GM/50 ML BAG IVPB ONE (04:08)
[2022-06-25 09:01] LABS: VBG Ionized Calcium 1.01 mmol/L (1.15-1.35)
[2022-06-25 09:12] LABS: Calcium 7.2 mg/dL (8.6-10.3); Potassium 5.2 mEq/L (3.5-5.1)
[2022-06-25] MEDS: Pantoprazole 40 MG VIAL IVP SCH (09:19)
[2022-06-25] MEDS ORDERED: NON-FORMULARY MEDICATION 1 EACH EACH (Rivaroxaban [Xarelto] 20 MG Tablet) PO SCH (13:00)
[2022-06-25] MEDS ORDERED: SODIUM ZIRCONIUM CYCLOSILICATE 5 GM POWD.PACK PO STA (13:08)
[2022-06-25] MEDS ORDERED: Heparin 25,000UNIT/250ML 1/2NS 25,000 UNIT/250 ML IV.SOLN IVC SCH (13:15)
[2022-06-25] MEDS: Ipratropium/Albuterol Neb 3 ML IH SCH ×2 (16:13→21:32)
[2022-06-25 16:56] LABS: Adenovirus Not Detected (Not Detect); Bordetella Pertussis Not Detected (Not Detect); Chlamydophila pneumoniae Not Detected (Not Detect); Coronavirus 229E Not Detected (Not Detect); Coronavirus HKU1 Not Detected (Not Detect); Coronavirus NL63 Not Detected (Not Detect); Coronavirus OC43 Not Detected (Not Detect); Human Metapneumovirus Not Detected (Not Detect); Human Rhinovirus/Enterovirus Not Detected (Not Detect); Influenza A Subtype 2009 H1 Not Detected (Not Detect); Influenza B Not Detected (Not Detect); Mycoplasma pneumoniae Not Detected (Not Detect); Parainfluenza Virus 1 Not Detected (Not Detect); Parainfluenza Virus 2 Not Detected (Not Detect); Parainfluenza Virus 3 Not Detected (Not Detect); Parainfluenza Virus 4 Not Detected (Not Detect); Respiratory Syncytial Virus Not Detected (Not Detect); SARS-CoV-2 Not Detected (Not Detect)
[2022-06-25] MEDS: Heparin 25,000UNIT/250ML 1/2NS 25,000 UNIT/250 ML IV.SOLN IVC SCH (16:56)
[2022-06-25] MEDS: *HR* Rivaroxaban 15 MG TABLET PO SCH (17:06)
[2022-06-26] MEDS ORDERED: *HR* Amiodarone 200 MG TABLET PO SCH (00:01)
[2022-06-26] MEDS: Insulin LISPRO 300 UNITS/3 ML VIAL SUBQ SCH ×4 (00:02→17:44)
[2022-06-26 00:38] LABS: Sodium, Urine 15.1 mEq/L
[2022-06-26] MEDS: Ipratropium/Albuterol Neb 3 ML IH SCH ×4 (04:01→22:12)
[2022-06-26] MEDS: Ondansetron 4 MG/2 ML VIAL IVP PRN (04:31)
[2022-06-26 06:34] LABS: Basophils % 0.3 %; Eosinophils % 0.1 %; Hematocrit 30.9 % (35.3-44.9); Hemoglobin 9.5 g/dL (11.5-15.4); Immature Granulocytes % 1.3 % (0-4); Lymphocytes # 0.4 K/mcL (0.6-4.6); Lymphocytes % 4.1 %; Mean Corpuscular HGB Conc 30.7 g/dL (31.6-35.5); Mean Corpuscular Hemoglobin 30.8 pg (28.0-33.3); Mean Corpuscular Volume 100.3 fL (83.0-100.0); Mean Platelet Volume 10.9 fL (9.4-12.4); Monocytes # 1.1 K/mcL (0.0-1.3); Platelet Count 231 K/mcL (140-400); Red Blood Count 3.08 M/mcL (3.82-4.97); Red Cell Distribution Width 14.2 % (11.5-14.5); Segmented Neutrophils % 84.2 %
[2022-06-26 06:38] LABS: White Blood Count 10.7 K/mcL (4.3-11.1)
[2022-06-26 07:12] LABS: Albumin/Globulin Ratio 1.3 (1.1-2.2); Calcium 6.9 mg/dL (8.6-10.3); Globulin 2.3 g/dL (2.4-3.5); Magnesium 2.3 mg/dL (1.6-2.6); Potassium 3.7 mEq/L (3.5-5.1); Total Protein 5.3 g/dL (6.4-8.9)
[2022-06-26] MEDS ORDERED: Calcium Gluconate 1gm/50mL 1 GM/50 ML BAG IVPB ONE (07:39)
[2022-06-26] MEDS: Pantoprazole 40 MG VIAL IVP SCH (09:16)
[2022-06-26] MEDS: Piperacillin/Tazobactam 3.375 GM in 0.9 % Sodium Chloride Mini Bag 100 ML IVPB SCH ×3 (09:16→23:40)
[2022-06-26] MEDS: Venlafaxine XR (24 HR) 75 MG CAP.ER.24H PO SCH (09:17)
[2022-06-26] MEDS: Aspirin Enteric Coated 81 MG Tablet PO SCH (09:17)
[2022-06-26] MEDS: *HR* Amiodarone 200 MG TABLET PO SCH (09:17)
[2022-06-26] MEDS: Sodium Bicarbonate 50 MEQ in 0.45 % Sodium Chloride 1,000 ML IVC SCH ×2 (12:12→23:03)
[2022-06-26] MEDS ORDERED: 0.9 % Sodium Chloride 1,000 ML IVC SCH (17:00)
[2022-06-26] MEDS: *HR* Rivaroxaban 15 MG TABLET PO SCH (17:48)
[2022-06-26] MEDS: Acetaminophen 325 MG TABLET PO PRN (19:57)
[2022-06-27] MEDS: Insulin LISPRO 300 UNITS/3 ML VIAL SUBQ SCH ×4 (00:58→17:46)
[2022-06-27 01:24] LABS: VBG Ionized Calcium 0.94 mmol/L (1.15-1.35)
[2022-06-27 01:32] LABS: Basophils % 0.4 %; Eosinophils # 0.1 K/mcL (0.0-0.6); Eosinophils % 0.7 %; Hematocrit 25.7 % (35.3-44.9); Hemoglobin 8.1 g/dL (11.5-15.4); Immature Granulocytes % 5.1 % (0-4); Lymphocytes # 0.7 K/mcL (0.6-4.6); Lymphocytes % 8.1 %; Mean Corpuscular HGB Conc 31.5 g/dL (31.6-35.5); Mean Corpuscular Hemoglobin 30.8 pg (28.0-33.3); Mean Corpuscular Volume 97.7 fL (83.0-100.0); Mean Platelet Volume 10.6 fL (9.4-12.4); Monocytes # 0.8 K/mcL (0.0-1.3); Monocytes % 9.2 %; Neutrophils # 6.4 K/mcL (1.6-8.9); Platelet Count 208 K/mcL (140-400); Red Blood Count 2.63 M/mcL (3.82-4.97); Red Cell Distribution Width 13.9 % (11.5-14.5); Segmented Neutrophils % 76.5 %; White Blood Count 8.3 K/mcL (4.3-11.1)
[2022-06-27 01:43] LABS: Albumin 2.8 g/dL (3.5-5.7); Albumin/Globulin Ratio 1.2 (1.1-2.2); Bilirubin,Total 0.8 mg/dL (0.3-1.0); Calcium 6.8 mg/dL (8.6-10.3); Globulin 2.3 g/dL (2.4-3.5); Magnesium 2.1 mg/dL (1.6-2.6); Potassium 3.4 mEq/L (3.5-5.1); Total Protein 5.1 g/dL (6.4-8.9)
[2022-06-27] MEDS: Acetaminophen 325 MG TABLET PO PRN (01:56)
[2022-06-27 02:01] LABS: Hypochromasia Present (Not Present); Platelet Estimate Normal (Normal)
[2022-06-27] MEDS: Ipratropium/Albuterol Neb 3 ML IH SCH ×4 (04:11→22:43)
[2022-06-27] MEDS: *HR* Amiodarone 200 MG TABLET PO SCH (08:18)
[2022-06-27] MEDS: Piperacillin/Tazobactam 3.375 GM in 0.9 % Sodium Chloride Mini Bag 100 ML IVPB SCH (08:18)
[2022-06-27] MEDS: Venlafaxine XR (24 HR) 75 MG CAP.ER.24H PO SCH (08:18)
[2022-06-27] MEDS: Aspirin Enteric Coated 81 MG Tablet PO SCH (08:18)
[2022-06-27] MEDS: Pantoprazole 40 MG VIAL IVP SCH (08:19)
[2022-06-27] MEDS: cloNIDine HCL 0.1 MG TABLET PO SCH ×2 (13:48→20:17)
[2022-06-27] MEDS: Azithromycin 250 MG TABLET PO SCH (13:48)
[2022-06-27] MEDS: DilTIAZem CD (24hr) 180 MG CAP.ER.24H PO SCH (13:50)
[2022-06-27] MEDS: cefTRIAXone 2,000 MG in Water for inj. (sterile) 20 ML IVP SCH (14:43)
[2022-06-27] MEDS: Ondansetron 4 MG/2 ML VIAL IVP PRN (14:58)
[2022-06-27] MEDS: Sodium Bicarbonate 50 MEQ in 0.45 % Sodium Chloride 1,000 ML IVC SCH (15:00)
[2022-06-27] MEDS: *HR* Rivaroxaban 15 MG TABLET PO SCH (16:26)
[2022-06-28] MEDS: Ipratropium/Albuterol Neb 3 ML IH SCH ×4 (04:09→22:02)
[2022-06-28] MEDS: Sodium Bicarbonate 50 MEQ in 0.45 % Sodium Chloride 1,000 ML IVC SCH (05:09)
[2022-06-28 05:26] LABS: Basophils # 0.1 K/mcL (0.0-0.2); Basophils % 0.9 %; Eosinophils # 0.2 K/mcL (0.0-0.6); Eosinophils % 2.4 %; Hematocrit 25.3 % (35.3-44.9); Hemoglobin 7.8 g/dL (11.5-15.4); Immature Granulocytes % 8.8 % (0-4); Lymphocytes # 1.1 K/mcL (0.6-4.6); Lymphocytes % 13.4 %; Mean Corpuscular HGB Conc 30.8 g/dL (31.6-35.5); Mean Corpuscular Volume 97.3 fL (83.0-100.0); Monocytes # 0.7 K/mcL (0.0-1.3); Monocytes % 8.5 %; Neutrophils # 5.2 K/mcL (1.6-8.9); Nucleated Red Blood Cells 0.3 /100 WBC (0); Platelet Count 225 K/mcL (140-400); Red Cell Distribution Width 13.7 % (11.5-14.5); White Blood Count 7.9 K/mcL (4.3-11.1)
[2022-06-28 05:27] LABS: VBG Ionized Calcium 0.98 mmol/L (1.15-1.35)
[2022-06-28 05:49] LABS: Calcium 6.7 mg/dL (8.6-10.3); Potassium 3.1 mEq/L (3.5-5.1)
[2022-06-28 05:52] LABS: Hypochromasia Present (Not Present); Microcytosis Present (Not Present); Platelet Estimate Normal (Normal)
[2022-06-28] MEDS ORDERED: Calcium Gluconate 1gm/50mL 1 GM/50 ML BAG IVPB ONE (07:26)
[2022-06-28] MEDS: DilTIAZem CD (24hr) 180 MG CAP.ER.24H PO SCH (08:42)
[2022-06-28] MEDS: Venlafaxine XR (24 HR) 75 MG CAP.ER.24H PO SCH (08:42)
[2022-06-28] MEDS: cloNIDine HCL 0.1 MG TABLET PO SCH ×3 (08:42→22:14)
[2022-06-28] MEDS: Insulin LISPRO 300 UNITS/3 ML VIAL SUBQ SCH ×3 (08:43→16:24)
[2022-06-28] MEDS: Aspirin Enteric Coated 81 MG Tablet PO SCH (08:43)
[2022-06-28] MEDS: *HR* Amiodarone 200 MG TABLET PO SCH (08:43)
[2022-06-28 10:19] LABS: ANA IgG by ELISA NONE DETECTED (None Detected)
[2022-06-28] MEDS: Azithromycin 250 MG TABLET PO SCH (12:27)
[2022-06-28] MEDS: cefTRIAXone 2,000 MG in Water for inj. (sterile) 20 ML IVP SCH (12:28)
[2022-06-28] MEDS: Lactobacillus 1 EACH CAP.SPRINK PO SCH ×2 (15:03→22:14)
[2022-06-28 16:44] LABS: ANCA IFA Titer <1:20 (<1:20)
[2022-06-28] MEDS: *HR* Rivaroxaban 15 MG TABLET PO SCH (16:47)
[2022-06-28] MEDS: Cyanocobalamin (B-12) 1,000 MCG TABLET PO SCH (16:47)
[2022-06-29] MEDS: Ipratropium/Albuterol Neb 3 ML IH SCH ×2 (03:41→10:27)
[2022-06-29 04:00] LABS: Hematocrit 25.2 % (35.3-44.9); Hemoglobin 7.7 g/dL (11.5-15.4); Mean Corpuscular HGB Conc 30.6 g/dL (31.6-35.5); Mean Corpuscular Hemoglobin 29.7 pg (28.0-33.3); Mean Corpuscular Volume 97.3 fL (83.0-100.0); Mean Platelet Volume 10.2 fL (9.4-12.4); Nucleated Red Blood Cells 0.3 /100 WBC (0); Platelet Count 226 K/mcL (140-400); Red Blood Count 2.59 M/mcL (3.82-4.97); Red Cell Distribution Width 13.6 % (11.5-14.5); White Blood Count 9.5 K/mcL (4.3-11.1)
[2022-06-29 04:18] LABS: Calcium 6.9 mg/dL (8.6-10.3); Potassium 3.4 mEq/L (3.5-5.1)
[2022-06-29 04:46] LABS: Eosinophils # 0.2 K/mcL (0.0-0.6); Lymphocytes # 1.8 K/mcL (0.6-4.6); Monocytes # 1.1 K/mcL (0.0-1.3); Neutrophils # 5.7 K/mcL (1.6-8.9); Platelet Estimate Normal (Normal)
[2022-06-29 04:47] LABS: Polychromasia 1+ (Not Present)
[2022-06-29] MEDS: DilTIAZem CD (24hr) 180 MG CAP.ER.24H PO SCH (07:44)
[2022-06-29] MEDS: Aspirin Enteric Coated 81 MG Tablet PO SCH (07:44)
[2022-06-29] MEDS: Venlafaxine XR (24 HR) 75 MG CAP.ER.24H PO SCH (07:44)
[2022-06-29] MEDS: Lactobacillus 1 EACH CAP.SPRINK PO SCH (07:44)
[2022-06-29] MEDS: cloNIDine HCL 0.1 MG TABLET PO SCH (07:44)
[2022-06-29] MEDS: *HR* Amiodarone 200 MG TABLET PO SCH (07:44)
[2022-06-29] MEDS: Cyanocobalamin (B-12) 1,000 MCG TABLET PO SCH (07:45)
[2022-06-29] MEDS: Insulin LISPRO 300 UNITS/3 ML VIAL SUBQ SCH ×2 (08:30→11:27)
[2022-06-29] MEDS ORDERED: Pantoprazole 40 MG VIAL IVP SCH (09:00)
[2022-06-29 09:42] LABS: ANCA IFA Pattern NONE DETECTED (None Detected); Serine Protease-3 Antibody 0 AU/mL (0-19)
[2022-06-29 10:26] LABS: Alpha 2 Globulin (PEP) 0.81 g/dL (0.48-1.05); Beta Globulin (PEP) 0.55 g/dL (0.48-1.10)
[2022-06-29 11:08] VITALS: BP 182/99; PULSE 76; TEMP 98.2; O2SAT 96
[2022-06-29] MEDS ORDERED: *HR* Rivaroxaban 10 MG TABLET PO SCH (17:00)
[2022-06-30 09:26] LABS: Immunoglobulin G 482 mg/dL (768-1632)
[2022-06-30 09:27] LABS: IFE Reflexed IFE Done; Immunoglobulin A 72 mg/dL (68-408); Immunoglobulin M 87 mg/dL (35-263)
== END 2022-06-29 13:14 | disposition home or self-care (01) | DRG 871 ==
LOC: 3ANU 11:22 → EMEROOARM 11:22 → SUATTDRO 15:50 → 3ANU 16:39 → SUATTDRO 06-25 13:41
PROVIDERS: ADMIT Family Medicine; ATTEND Internal Medicine